=== PATIENT | female | born 1955 | race Caucasian/White ===

== ENCOUNTER → 2016-11-16 | Day surgery (SDC) | payer OTHER ==
[2016-10-30 11:13] VITALS: Ht 155.6 cm; Wt 78.0 kg
[~2016-11-16] VITALS: Ht 155.6 cm; Wt 78.0 kg
[~2016-11-16] MED LIST: ALBU18002 INH; BUPR-79 PO; FENTANYL CITRATE INJ 50 MCG/1 ML 2 ML VIAL ONE; FLUO10CA48 PO; FLUO20CA35 PO; HYOS1TAB PO; LIDOCAINE HCL 2% 2 ML VIAL (20MG/ML) ONE; LORA-741 PO; MELO7.5T5 PO; MIDAZOLAM HCL 1 MG/ML 2ML VIAL ONE; MULT-506 PO; OMEP20TA PO; PRED20TA PO; PROPOFOL IV EMULSION 10 MG/ML 20 ML VIAL IV ONE; SODIUM CHLORIDE 0.9% 500ML 500 ML IV ONE
--- NOTE | 2016-11-16 11:11 | Endo History and Physical ---
History & Physical Date of Service: Nov 16, 2016. Chief Complaint: screening Referring Physician: Dr. Rosie Greene History of Present Illness 60 yo CF who presents for screening colonoscopy. Past Surgical History Hx Cardiac Surgery: No Hx Internal Defibrillator: No Hx Pacemaker: No Hx Abdominal Surgery: Yes ( X 2) Hx of Implantable Prosthesis: No Hx Post-Op Nausea and Vomiting: No Hx Cancer Surgery: No Hx Thoracic Surgery: No Hx Orthopedic: Yes (RT KNEE BURSA REMOVAL ) Hx Urinary Tract Surgery: Yes (RT URETER RE-ATTACHMENT) Family History IBD Social History Smoking Status: Former Smoker Hx Substance Use: No Hx Alcohol Use: Yes (2 GLASSES WINE DAILY) Allergies Coded Allergies: NO KNOWN DRUG ALLERGIES (Verified Allergy, Unknown, ., 10/30/16) Uncoded Allergies: CATS (Allergy, Unknown, HIVES, 10/30/16) Current Medications Reported Home Medications Medications Dose Route/Sig Max Daily Dose Days Date Category Proair Respiclick (Albuterol Sulfate) 108 Mcg/Act Aer 2 Puffs INH QID PRN 10/30/16 Reported Ativan (Lorazepam) 0.5 Mg Tab 0.5 Mg PO HS 10/30/16 Reported Levsin (Hyoscyamine Sulfate) 0.125 Mg Tab 0.125 Mg PO BID 10/30/16 Reported Mobic (Meloxicam) 7.5 Mg Tab 7.5 Mg PO QAM 10/30/16 Reported Wellbutrin Sr (Bupropion HCl) 150 Mg Ertab 150 Mg PO QAM 10/30/16 Reported Prozac (Fluoxetine HCl) 20 Mg Cap 20 Mg PO QAM 10/30/16 Reported Prozac (Fluoxetine HCl) 10 Mg Cap 10 Mg PO QAM 10/30/16 Reported Omeprazole 20 Mg Tab 1 Tab PO HS 90 10/30/16 Reported Vital Signs Weight (Kilograms): 77.95 Height (Feet): 5 Height (Inches): 1.25 Date Time Temp Pulse Resp B/P Pulse Ox O2 Delivery O2 Flow Rate FiO2 11/16/16 11:03 36.8 78 20 134/71 97 Room Air Physical Exam General Appearance: WD/WN, no apparent distress Respiratory/Chest: Auscultation: breath sounds normal Cardiovascular: Heart Auscultation: RRR Abdomen: Bowel Sounds: normal Inspection & Palpation: soft, non-distended, no tenderness, guarding & rebound Assessment and Plan Assessment: 60 yo CF who presents for screening colonoscopy. Plan: Proceed with colonoscopy.
--- NOTE | 2016-11-16 12:05 | Discharge Instructions ---
Endoscopy Patient Instructions Date / Procedure(s) Performed Nov 16, 2016. Colonoscopy Allergy Information Coded Allergies: NO KNOWN DRUG ALLERGIES (Verified Allergy, Unknown, ., 10/30/16) Uncoded Allergies: CATS (Allergy, Unknown, HIVES, 10/30/16) Discharge Date / Findings Nov 16, 2016. Diverticulosis Internal hemorrhoids Medication Instructions OK to resume all medications today as prescribed Reported Home Medications Medications Dose Route/Sig Max Daily Dose Days Date Category Proair Respiclick (Albuterol Sulfate) 108 Mcg/Act Aer 2 Puffs INH QID PRN 10/30/16 Reported Ativan (Lorazepam) 0.5 Mg Tab 0.5 Mg PO HS 10/30/16 Reported Levsin (Hyoscyamine Sulfate) 0.125 Mg Tab 0.125 Mg PO BID 10/30/16 Reported Mobic (Meloxicam) 7.5 Mg Tab 7.5 Mg PO QAM 10/30/16 Reported Wellbutrin Sr (Bupropion HCl) 150 Mg Ertab 150 Mg PO QAM 10/30/16 Reported Prozac (Fluoxetine HCl) 20 Mg Cap 20 Mg PO QAM 10/30/16 Reported Prozac (Fluoxetine HCl) 10 Mg Cap 10 Mg PO QAM 10/30/16 Reported Omeprazole 20 Mg Tab 1 Tab PO HS 90 10/30/16 Reported Provider Instructions Activity Restrictions - No exercising or heavy lifting for 24 hours. - Do not drink alcohol the day of the procedure. - Do not drive a car or operate machinery until the day after the procedure. - Do not make any important decisions or sign important papers in 24 hours after the procedure. Following Day: - Return to full activity which may include returning to work/school. Diet Start your diet with liquids and light foods (jello, soup, juice, toast). Then eat your usual diet if not nauseated. Treatment For Common After Affects For mild abdominal pain, bloating, or excessive gas: - Rest - Eat lightly - Lie on right side Follow-Up Information Follow-up with Dr. Rosie Greene as scheduled Anesthesia Information What You Should Know You have had a procedure that required some medicine to reduce anxiety and discomfort. This treatment is called moderate sedation. After receiving the treatment, you may be sleepy, but you will be able to breathe on your own. The effects of the treatment may last for several hours. Follow these instructions along with Activity/Diet recommendations noted above: * Do NOT do anything where dizziness or clumsiness would be dangerous. * Rest quietly at home today, then you can be up and about tomorrow. * Have a responsible person stay with you the rest of today. * You may have had an I.V. today. If so, you may take the dressing off later today. Recommendations Call your doctor if: * Trouble breathing * Continuous vomiting for more than 24 hours * Temperature above 101 degrees * Severe abdominal pain or bloating * Pain not relieved by pain medicine ordered * There is increased drainage or redness from any incision * A large amount of rectal bleeding greater than 2-3 tablespoons. (If you had a polyp/s removed or have hemorrhoids, a small amount of blood - from the rectum is to be expected.) * You have any unanswered questions or concerns. IN THE EVENT OF A SERIOUS EMERGENCY, GO TO THE NEAREST EMERGENCY ROOM Your discharge instructions were prepared by provider Roly Brewster. Patient Instructions Signature Page Gemini Santos Patient (or Guardian) Signature/Date: I have read and understand the instructions given to me by my caregivers. Caregiver/RN/Doctor Signature/Date: The above-named patient and/or guardian has received patient instructions on this date. + Original Patient Signature Page (only) stays with chart. Please make copy for patient.
--- NOTE | 2016-11-16 12:09 | GI REPORT ---
Procedure Date: 11/16/2016 11:35 AM Procedure: Colonoscopy Indications: Screening for colorectal malignant neoplasm Medicines: Monitored Anesthesia Care Complications: No immediate complications. Estimated Blood Loss: Estimated blood loss: none. Procedure: Pre-Anesthesia Assessment: - Prior to the procedure, a History and Physical was performed, and patient medications and allergies were reviewed. The patient's tolerance of previous anesthesia was also reviewed. The risks and benefits of the procedure and the sedation options and risks were discussed with the patient. All questions were answered, and informed consent was obtained. Prior Anticoagulants: The patient has taken no previous anticoagulant or antiplatelet agents. ASA Grade Assessment: II - A patient with mild systemic disease. After reviewing the risks and benefits, the patient was deemed in satisfactory condition to undergo the procedure. After I obtained informed consent, the scope was passed under direct vision. Throughout the procedure, the patient's blood pressure, pulse, and oxygen saturations were monitored continuously. The scope was introduced through the anus and advanced to the terminal ileum. The colonoscopy was performed without difficulty. The patient tolerated the procedure well. The quality of the bowel preparation was good. The terminal ileum, ileocecal valve, appendiceal orifice, and rectum were photographed. Findings: Multiple small-mouthed diverticula were found in the sigmoid colon. Non-bleeding internal hemorrhoids were found during retroflexion. The hemorrhoids were small. Impression: - Diverticulosis in the sigmoid colon. - Non-bleeding internal hemorrhoids. - No specimens collected. Recommendation: - Resume previous diet. - Continue present medications. - Repeat colonoscopy in 10 years for surveillance. - Return to primary care physician as previously scheduled. Roly Brewster, 11/16/2016 12:09:19 PM This report has been signed electronically. Note Initiated On: 11/16/2016 11:35 AM I attest to the content of the Intraoperative Record and orders documented therein, exceptions below
[2016-11-16 12:48] VITALS: BP 117/55; PULSE 64; O2SAT 98
--- NOTE | 2016-11-16 13:33 | Anesthesiology Progress Note ---
Anesthesia Post Op Note Date & Time Nov 16, 2016 at 13:32 Vital Signs Pain Intensity: 0 Vital Signs Past 12 Hours Date Time Temp Pulse Resp B/P Pulse Ox O2 Delivery O2 Flow Rate FiO2 11/16/16 12:48 64 20 117/55 98 11/16/16 12:35 61 20 132/60 97 Room Air 11/16/16 12:22 66 20 118/55 97 Room Air 11/16/16 12:07 76 20 118/55 97 Room Air 11/16/16 11:03 36.8 78 20 134/71 97 Room Air Notes Mental Status: alert / awake / arousable, participated in evaluation Pt Amnestic to Procedure: Yes Nausea / Vomiting: adequately controlled Pain: adequately controlled Airway Patency, RR, SpO2: stable & adequate BP & HR: stable & adequate Hydration State: stable & adequate Anesthetic Complications: no major complications apparent
== END | disposition home or self-care (01) ==
LOC: C.GI 10:37
PROVIDERS: ATTEND Internal Medicine
DX: Z12.11 Encounter for screening for malignant neoplasm of colon (principal); Z87.891 Personal history of nicotine dependence; K57.30 Diverticulosis of large intestine without perforation or abscess without bleeding; K64.8 Other hemorrhoids

== ENCOUNTER → 2016-11-30 | Outpatient (CLI) | payer OTHER ==
[~2016-11-30] MED LIST changes: -FENTANYL CITRATE INJ 50 MCG/1 ML 2 ML VIAL ONE; -LIDOCAINE HCL 2% 2 ML VIAL (20MG/ML) ONE; -MIDAZOLAM HCL 1 MG/ML 2ML VIAL ONE; -PROPOFOL IV EMULSION 10 MG/ML 20 ML VIAL IV ONE; -SODIUM CHLORIDE 0.9% 500ML 500 ML IV ONE
[2016-11-30 12:23] LABS: ESTIMATED AVERAGE GLUCOSE 117 mg/dl; HA1C FLAG Normal (Normal)
[2016-11-30 12:32] LABS: ALKALINE PHOSPHATASE 56 U/L (45-117); ALT/SGPT 42 U/L (12-78); AST/SGOT 17 U/L (15-37); BLOOD UREA NITROGEN 13 mg/dl (7-18); BUN/CREATININE RATIO 14.8 (10-20); CALCIUM 9.2 mg/dl (8.5-10.1); CARBON DIOXIDE 31 mmol/L (21-32); CHLORIDE 105 mmol/L (98-107); CREATININE 0.88 mg/dl (0.60-1.20); GLUCOSE 104 mg/dl (70-99); POTASSIUM 4.4 mmol/L (3.5-5.1); SODIUM 141 mmol/L (136-145)
[2016-11-30 12:34] LABS: CHOLESTEROL 257 mg/dl (0-200); HDL CHOLESTEROL 64 mg/dl; LDL CHOLESTEROL CALCULATED 164 mg/dl; TRIGLYCERIDES 145 mg/dl (0-150); VERY LOW DENSITY LIPOPROT CALC 29 mg/dl
== END | disposition home or self-care (01) ==
LOC: C.LAB1850 10:07
PROVIDERS: ATTEND Family Medicine
DX: E78.5 Hyperlipidemia, unspecified (principal); R73.03 Prediabetes

== ENCOUNTER → 2017-02-05 | Outpatient (CLI) | payer OTHER ==
--- NOTE | 2017-02-05 15:23 | MAMMOGRAPHY REPORT ---
BILATERAL DIGITAL SCREENING MAMMOGRAM TOMOSYNTHESIS WITH CAD: 02/05/2017 CLINICAL HISTORY: Routine screening. TECHNIQUE: Breast tomosynthesis in addition to standard 2D mammography was performed. Current study was also evaluated with a Computer Aided Detection (CAD) system. COMPARISON: Comparison is made to exams dated: 10/29/2014 mammogram, 10/26/2013 mammogram, 04/13/2012 ma mmogram, 03/05/2011 mammogram, 03/04/2010 mammogram - [facility], and 11/06/2008. BREAST COMPOSITION: There are scattered areas of fibroglandular density in both breasts. FINDINGS: No suspicious masses, calcifications, or areas of architectural distortion are noted in ei ther breast. There has been no significant interval change compared to prior exams. Small nodular as ymmetry in the left 6:00 breast is stable dating back to at least the 2010 exam. A linear scar marke r denotes a scar on the right anterior breast. IMPRESSION: ACR BI-RADS CATEGORY 2: BENIGN There is no mammographic evidence of malignancy. A 1 year screening mammogram is recommended. The pa tient will receive written notification of the results. Approximately 10% of breast cancers are not detected with mammography. A negative mammographic report should not delay biopsy if a clinically suggestive mass is present. Santa Casey M.D. /:02/05/2017 13:16:29 Chef Instructor: Dionne Boone RT(R)(M), [facility] letter sent: Normal 1/2 BI-RADS Code: ACR BI-RADS Category 2: Benign
== END | disposition home or self-care (01) ==
LOC: C.MAMM 12:25
PROVIDERS: ATTEND Nurse Practitioner Adult Health
DX: Z12.31 Encounter for screening mammogram for malignant neoplasm of breast (principal)

== ENCOUNTER 2017-04-20 12:00 | Emergency (ER) | payer OTHER ==
[~2017-04-20] VITALS: Ht 155.6 cm; Wt 83.3 kg
[~2017-04-20 12:00] MED LIST changes: -MULT-506 PO; -PRED20TA PO
[2017-04-20 12:02] VITALS: TEMP 36.5; Ht 155.6 cm; Wt 83.3 kg
[2017-04-20] MEDS ORDERED: SODIUM CHLORIDE 0.9% 1000ML 1,000 ML IV SCH (12:50)
[2017-04-20 13:32] VITALS: O2SAT 91
[2017-04-20 13:34] LABS: BASO % 0.2 %; BASO ABS # 0.01 K/uL (0-0.2); COMPLETE YES; EOS % 7.2 %; HEMATOCRIT 44.6 % (37-47); IG% 0.5 %; LYMPH ABS # 1.43 K/uL (1.2-3.4); MEAN CELL VOLUME 95.7 fL (80-100); MEAN CORPUSCULAR HEMOGLOBIN 31.1 pg (25-34); MEAN CORPUSCULAR HGB CONC 32.5 g/dl (32-36); MEAN PLATELET VOLUME 11.2 fL (7.4-10.4); MONO % 7.9 %; NEUT % 59.2 %; PLATELET COUNT 194 K/uL (130-400); RED BLOOD COUNT 4.66 M/uL (4.2-5.4); WHITE BLOOD COUNT 5.71 K/uL (4.8-10.8)
[2017-04-20 13:42] LABS: PROTHROMBIN TIME (PATIENT) 10.2 SECONDS (9.0-12.0)
[2017-04-20 13:56] LABS: BLOOD UREA NITROGEN 17 mg/dl (7-18); BUN/CREATININE RATIO 19.7 (10-20); CALCIUM 9.7 mg/dl (8.5-10.1); CARBON DIOXIDE 28 mmol/L (21-32); CHLORIDE 104 mmol/L (98-107); CREATININE 0.88 mg/dl (0.60-1.20); GLUCOSE 92 mg/dl (70-99); POTASSIUM 4.2 mmol/L (3.5-5.1); SODIUM 138 mmol/L (136-145)
--- NOTE | 2017-04-20 13:57 | DIAGNOSTIC IMAGING REPORT ---
CT HEAD WITHOUT CONTRAST (CT) CLINICAL HISTORY: Stroke HEADACHE, RIGHT LEG NUMBNESS. COMPARISON STUDY: No previous studies for comparison. TECHNIQUE: Axial CT of the brain is performed from the vertex to the skull base. IV contrast was not administered for this examination. A dose lowering technique was utilized adhering to the principles of ALARA. CT DOSE: 776.86 mGycm FINDINGS: No intra or extra-axial mass lesions are visualized. There is no CT evidence of acute cortical infarction. There is no evidence of midline shift. There is no acute hemorrhage. No calvarial fractures are visualized. There is no evidence of pathologic ventricular dilatation. There is no evidence of acute sinusitis IMPRESSION: No acute intracranial findings Electronically signed by: Rodrigo Murguia M.D. 04/20/2017 1:56 PM Dictated Date/Time: 04/20/2017 1:55 PM
[2017-04-20] MEDS ORDERED: MULT-506 PO (14:27)
[2017-04-20] MEDS ORDERED: PRED20TA PO (14:36)
[2017-04-20 14:53] VITALS: BP 174/79; PULSE 74; O2SAT 94
--- NOTE | 2017-04-20 19:59 | EMERGENCY ROOM VISIT NOTE ---
History Report prepared by Reza: Desiree Cummins Under the Supervision of: Dr. Nickolas Rebollar D.O. First contact with patient: 12:40 Chief Complaint: NEURO SYMPTOMS Stated Complaint: NUMBNESS IN RT LEG - BELOW KNEE Nursing Triage Summary: Patient c/o numbness to outside of right calf and intermittent numbness to right large toe. Patient also states, "sometimes it feels like there is fluid on the top of my foot". History of Present Illness The patient is a 61 year old female who presents to the Emergency Room with complaints of persistent right lower leg numbness starting 3 days ago. She was sent to the ED by her PCP. The numbness goes down the outside of her right leg and down across the inside of her foot. She also feels like there is fluid inside the top of her foot. She can feel in her right leg, but it feels different from her left leg. The numbness has not changed since it started. She feels like she cannot get comfortable. She has tried elevating her foot to no relief. She does not have any pain in her legs. She denies any recent trauma or new activity. She notes some pain under her buttocks on the left side, but not the right side. She denies any chest pain, nausea, vomiting, diarrhea, SOB, abdominal pain, dysuria, weakness, headache, change in vision, back pain, or numbness elsewhere. She denies any other medical problems. Source of History: patient Onset: 3 days ago Position: leg (right) Quality: numbness Timing: other (persistent) Associated Symptoms: No headache, No chest pain, No SOB, No nausea, No vomiting, No abdominal pain, No back pain, No diarrhea, No urinary symptoms, No weakness Review of Systems See HPI for pertinent positives & negatives. A total of 10 systems reviewed and were otherwise negative. Past Medical & Surgical Medical Problems: (1) Carpal tunnel syndrome Family History No pertinent family history stated. Social History Smoking Status: Former Smoker Marital Status: Occupation Status: employed Current/Historical Medications Scheduled Bupropion (Wellbutrin Sr), 150 MG PO QAM Fluoxetine (Prozac), 10 MG PO QAM Fluoxetine (Prozac), 20 MG PO QAM Hyoscyamine Sulfate (Levsin), 0.125 MG PO BID Lorazepam (Ativan), 0.5 MG PO HS Meloxicam (Mobic), 7.5 MG PO QAM Multivitamin (Multivitamin), 1 TAB PO DAILY Omeprazole (Omeprazole), 20 MG PO DAILY Prednisone (Prednisone), 1 TAB PO DAILY Scheduled PRN Albuterol Sulfate (Proair Respiclick), 2 PUFFS INH QID PRN for Shortness of Breath Allergies Coded Allergies: NO KNOWN DRUG ALLERGIES (Verified Allergy, Unknown, ., 04/20/17) Uncoded Allergies: CATS (Allergy, Unknown, HIVES, 10/30/16) Physical Exam Vital Signs Date Time Temp Pulse Resp B/P (MAP) Pulse Ox O2 Delivery O2 Flow Rate FiO2 04/20/17 14:53 74 18 174/79 94 04/20/17 13:32 73 18 144/72 96 Room Air 04/20/17 13:32 91 Room Air 04/20/17 12:02 36.5 80 18 159/81 92 Room Air Physical Exam GENERAL: sitting up in bed, alert, well appearing, well nourished, no distress, non-toxic EYE EXAM: normal conjunctiva, PERRL and EOM's intact OROPHARYNX: no exudate, no erythema, lips, buccal mucosa, and tongue normal and mucous membranes are moist NECK: supple, no nuchal rigidity, no adenopathy, non-tender LUNGS: Clear to auscultation. Normal chest wall mechanics HEART: no murmurs, S1 normal and S2 normal ABDOMEN: abdomen soft, non-tender, normo-active bowel sounds, no masses, no rebound or guarding. BACK: Back is symmetrical on inspection and there is no deformity, no midline tenderness, no CVA tenderness. SKIN: no rashes and no bruising UPPER EXTREMITIES: upper extremities are grossly normal. LOWER EXTREMITIES: Right mid tibia anterior surface with mild perceived paraesthesias tracking medially down over the first metatarsal on the proximal portion just distal to the ankle. Calves equal bilaterally. Patellar and Achilles reflexes intact. NEURO EXAM: Normal sensorium, cranial nerves II-XII intact, normal speech, no weakness of arms, no weakness of legs. No drift. Finger to nose intact. Gross sensation intact. Rapid alternating movements of the upper extremities intact. Medical Decision & Procedures ER Provider Diagnostic Interpretation: Radiology results as stated below per my review and the radiologist's interpretation: CT HEAD WITHOUT CONTRAST (CT) CLINICAL HISTORY: Stroke HEADACHE, RIGHT LEG NUMBNESS. COMPARISON STUDY: No previous studies for comparison. TECHNIQUE: Axial CT of the brain is performed from the vertex to the skull base. IV contrast was not administered for this examination. A dose lowering technique was utilized adhering to the principles of ALARA. CT DOSE: 776.86 mGycm FINDINGS: No intra or extra-axial mass lesions are visualized. There is no CT evidence of acute cortical infarction. There is no evidence of midline shift. There is no acute hemorrhage. No calvarial fractures are visualized. There is no evidence of pathologic ventricular dilatation. There is no evidence of acute sinusitis IMPRESSION: No acute intracranial findings Electronically signed by: Rodrigo Murguia M.D. 04/20/2017 1:56 PM Dictated Date/Time: 04/20/2017 1:55 PM Laboratory Results 04/20/17 13:00 Red Blood Count 4.66, Mean Corpuscular Volume 95.7, Mean Corpuscular Hemoglobin 31.1, Mean Corpuscular Hemoglobin Concent 32.5, Mean Platelet Volume 11.2, Neutrophils (%) (Auto) 59.2, Lymphocytes (%) (Auto) 25.0, Monocytes (%) (Auto) 7.9, Eosinophils (%) (Auto) 7.2, Basophils (%) (Auto) 0.2, Neutrophils # (Auto) 3.38, Lymphocytes # (Auto) 1.43, Monocytes # (Auto) 0.45, Eosinophils # (Auto) 0.41, Basophils # (Auto) 0.01 04/20/17 13:00 Test 04/20/17 13:00 White Blood Count 5.71 K/uL (4.8-10.8) Red Blood Count 4.66 M/uL (4.2-5.4) Hemoglobin 14.5 g/dL (12.0-16.0) Hematocrit 44.6 % (37-47) Mean Corpuscular Volume 95.7 fL (80-100) Mean Corpuscular Hemoglobin 31.1 pg (25-34) Mean Corpuscular Hemoglobin Concent 32.5 g/dl (32-36) Platelet Count 194 K/uL (130-400) Mean Platelet Volume 11.2 fL (7.4-10.4) Neutrophils (%) (Auto) 59.2 % Lymphocytes (%) (Auto) 25.0 % Monocytes (%) (Auto) 7.9 % Eosinophils (%) (Auto) 7.2 % Basophils (%) (Auto) 0.2 % Neutrophils # (Auto) 3.38 K/uL (1.4-6.5) Lymphocytes # (Auto) 1.43 K/uL (1.2-3.4) Monocytes # (Auto) 0.45 K/uL (0.11-0.59) Eosinophils # (Auto) 0.41 K/uL (0-0.5) Basophils # (Auto) 0.01 K/uL (0-0.2) RDW Standard Deviation 45.4 fL (36.4-46.3) RDW Coefficient of Variation 13.2 % (11.5-14.5) Immature Granulocyte % (Auto) 0.5 % Immature Granulocyte # (Auto) 0.03 K/uL (0.00-0.02) Prothrombin Time 10.2 SECONDS (9.0-12.0) Prothromb Time International Ratio 1.0 (0.9-1.1) Activated Partial Thromboplast Time 25.2 SECONDS (21.0-31.0) Partial Thromboplastin Ratio 1.0 Anion Gap 6.0 mmol/L (3-11) Est Creatinine Clear Calc Drug Dose 66.9 ml/min Estimated GFR () 82.8 Estimated GFR (Non- 71.4 BUN/Creatinine Ratio 19.7 (10-20) Calcium Level 9.7 mg/dl (8.5-10.1) Troponin I < 0.015 ng/ml (0-0.045) Laboratory results per my review. Medications Administered Medications (Trade) Dose Ordered Sig/Daija Route Start Time Stop Time Status Last Admin Dose Admin Sodium Chloride 1,000 ml @ 50 mls/hr Q20H IV 04/20/17 12:50 04/20/17 15:16 DC 04/20/17 13:56 50 MLS/HR Prednisone (PredniSONE TAB) 60 mg NOW STAT PO 04/20/17 14:37 04/20/17 14:38 DC 04/20/17 14:46 60 MG ECG Indication: other Rate (beats per minute): 66 Rhythm: sinus rhythm Findings: no ectopy, other (normal axis) ED Course ED COURSE: Vital signs were reviewed and showed hypertension. The patients medical record was reviewed The above diagnostic studies were performed and reviewed. ED treatments and interventions as stated above. 1242: The patient was evaluated in room C12B. A complete history and physical examination was performed. 1250: NSS 1000 ml @ 50 mls/hr IV. 1430: Upon reevaluation, the patient is resting comfortably. I discussed my findings with the patient and she understands and agrees with the treatment plan. Based on the patients age, coexisting illnesses, exam and lab findings the decision to treat as an outpatient was made. The patient remained stable while under my care. The patient appeared well at the time of discharge. 1437: Prednisone 60 mg PO. Medical Decision Differential Diagnosis includes but is not limited to ischemic Stroke, hemorrhagic stroke, bells palsy, mass, neoplasm, migraine headache, seizure, subarachnoid hemorrhage, TIA, and transient global amnesia. Patient is a 61-year-old female that presents to ER with numbness in her right lower extremity which is in the distribution of L4. No focal deficit otherwise. CBC and BMP is unremarkable. CT head was negative. Patient is carefully neurologically intact otherwise. No other complaints. I do believe that this is a peripheral neuropraxia. She was given small dose of steroids and discharge follow-up with PCP. No numbness or tingling in the groin. Able to move her bowels. No signs of cauda equina. Medication Reconcilliation Current Medication List: was personally reviewed by me Blood Pressure Screening Patient's blood pressure: Elevated blood pressure Blood pressure disposition: Elevated BP felt to be situational Impression Primary Impression: Right leg paresthesias Scribe Attestation The scribe's documentation has been prepared under my direction and personally reviewed by me in its entirety. I confirm that the note above accurately reflects all work, treatment, procedures, and medical decision making performed by me. Departure Information Dispostion Home / Self-Care Prescriptions Prednisone (Prednisone) 20 Mg Tab 1 TAB PO DAILY for 5 Days, #5 TAB Prov: Nickolas Rebollar, 04/20/17 Referrals Taylor Zelaya C.R.N.P. (PCP) Forms HOME CARE DOCUMENTATION FORM, IMPORTANT VISIT INFORMATION, WORK / SCHOOL INSTRUCTIONS Patient Instructions ED Paraesthesias, My [facility] Additional Instructions Please follow up with your primary care doctor with in the next 24 hours. Any worsening of your symptoms, please return to the ED immediately. This includes any fevers greater than 100.4, worsening pain, chest pain, shortness breath, persistent nausea, vomiting, weakness or numbness in your legs, unable to walk, unable to urinate, numbness in your groin, unable to eat or drink, or any other concerning signs or symptoms from your standpoint. Please take steroids as prescribed.
== END 2017-04-20 14:54 | disposition home or self-care (01) ==
LOC: C.EDB 12:02 → C.EDC 14:54
DX: R20.2 Paresthesia of skin (principal); G56.00 Carpal tunnel syndrome, unspecified upper limb; Z87.891 Personal history of nicotine dependence

== ENCOUNTER → 2017-04-30 | Outpatient (CLI) | payer OTHER ==
[~2017-04-30] MED LIST changes: +MULT-506 PO
[2017-04-30 14:25] LABS: LYME DISEASE AB IGG NEG (NEG); LYME DISEASE AB IGM NEG (NEG)
== END | disposition home or self-care (01) ==
LOC: C.LABBC 10:26
PROVIDERS: ATTEND Nurse Practitioner Adult Health
DX: R20.2 Paresthesia of skin (principal)

== ENCOUNTER → 2017-07-16 | Outpatient (CLI) | payer OTHER ==
[2017-07-16 11:05] LABS: ESTIMATED AVERAGE GLUCOSE 117 mg/dl; HA1C FLAG Normal (Normal)
[2017-07-16 11:14] LABS: BASO % 0.3 %; BASO ABS # 0.02 K/uL (0-0.2); COMPLETE YES; EOS % 5.4 %; HEMATOCRIT 42.8 % (37-47); IG% 0.3 %; LYMPH % 27.4 %; LYMPH ABS # 1.68 K/uL (1.2-3.4); MEAN CELL VOLUME 97.3 fL (80-100); MEAN CORPUSCULAR HEMOGLOBIN 31.8 pg (25-34); MEAN CORPUSCULAR HGB CONC 32.7 g/dl (32-36); MEAN PLATELET VOLUME 11.9 fL (7.4-10.4); MONO % 7.7 %; NEUT % 58.9 %; PLATELET COUNT 169 K/uL (130-400); WHITE BLOOD COUNT 6.14 K/uL (4.8-10.8)
[2017-07-16 11:19] LABS: ALT/SGPT 51 U/L (12-78); BLOOD UREA NITROGEN 14 mg/dl (7-18); BUN/CREATININE RATIO 17.6 (10-20); CARBON DIOXIDE 31 mmol/L (21-32); CHLORIDE 105 mmol/L (98-107); CHOLESTEROL 253 mg/dl (0-200); CREATININE 0.81 mg/dl (0.60-1.20); GLUCOSE 102 mg/dl (70-99); POTASSIUM 3.9 mmol/L (3.5-5.1); SODIUM 140 mmol/L (136-145)
[2017-07-16 11:30] LABS: ALB/GLOB RATIO 1.1 (0.9-2); ALKALINE PHOSPHATASE 54 U/L (45-117); AST/SGOT 25 U/L (15-37); CHOLESTEROL/HDL RATIO 3.8; HDL CHOLESTEROL 66 mg/dl; LDL CHOLESTEROL CALCULATED 155 mg/dl; TRIGLYCERIDES 158 mg/dl (0-150); VERY LOW DENSITY LIPOPROT CALC 32 mg/dl
== END | disposition home or self-care (01) ==
LOC: C.LABBC 08:19
PROVIDERS: ATTEND Nurse Practitioner Adult Health
DX: E78.5 Hyperlipidemia, unspecified (principal); R73.03 Prediabetes

== ENCOUNTER → 2017-08-19 | Outpatient (CLI) | payer OTHER ==
[~2017-08-19] VITALS: Ht 155.6 cm; Wt 84.3 kg
[2017-08-19 13:33] VITALS: BP 141/78; PULSE 84; Ht 155.6 cm; Wt 84.3 kg
--- NOTE | 2017-08-27 09:02 | CODING QUERY NO DIAGNOSIS ---
TREATMENT RENDERED WITHOUT A DIAGNOSIS : 56 To promote full compliance with coding requirements relating to patient care, physician participation is requested in all cases of glass bulb silverer uncertainty. Please assist us with providing a diagnosis/symptom for the test(s) below: A diagnosis/symptom was not documented on your Order. A valid diagnosis/symptom is required to bill all insurances. Please remember that we are unable to code a diagnosis of rule out, probable, possible, questionable, or suspected. Tests that require a diagnosis: DOS: 08/19/17 * EPWORTH SLEEPINESS SCALE DIAGNOSIS: Provider Signature: Date: Provider Name: Thank you Tereza Morgan Health Information Management Once completed, please kindly fax back to [phone] For questions please call [phone]
== END | disposition home or self-care (01) ==
LOC: C.NEUR 12:58
PROVIDERS: ATTEND Physician Assistant
DX: G47.30 Sleep apnea, unspecified (principal); G47.61 Periodic limb movement disorder

== ENCOUNTER → 2017-08-24 | Outpatient (CLI) | payer OTHER ==
[2017-08-24 17:19] LABS: ALBUMIN 3.7 gm/dl (3.4-5.0); ALKALINE PHOSPHATASE 60 U/L (45-117); ALT/SGPT 63 U/L (12-78); AST/SGOT 36 U/L (15-37); LDL CHOLESTEROL (DIRECT) 151 mg/dl; TOTAL PROTEIN 7.1 gm/dl (6.4-8.2)
== END | disposition home or self-care (01) ==
LOC: C.LABBC 14:23
PROVIDERS: ATTEND Nurse Practitioner Adult Health
DX: E78.5 Hyperlipidemia, unspecified (principal); Z11.59 Encounter for screening for other viral diseases

== ENCOUNTER → 2018-03-02 | Outpatient (CLI) | payer OTHER ==
--- NOTE | 2018-03-03 07:58 | MAMMOGRAPHY REPORT ---
BILATERAL DIGITAL SCREENING MAMMOGRAM TOMOSYNTHESIS WITH CAD: 03/02/2018 CLINICAL HISTORY: Routine screening. Patient has no complaints. TECHNIQUE: The study was acquired using full field digital technology and interpreted from soft copy. Breast tomosynthesis in addition to standard 2D mammography was performed. Current study was also ev aluated with a Computer Aided Detection (CAD) system. COMPARISON: Comparison is made to exams dated: 02/05/2017 mammogram, 10/29/2014 mammogram, 10/26/2013 m ammogram, 04/13/2012 mammogram, 03/05/2011 mammogram, and 03/04/2010 mammogram - [facility] nter. BREAST COMPOSITION: There are scattered areas of fibroglandular density in both breasts. FINDINGS: No suspicious masses, calcifications, or areas of architectural distortion are noted in either breast . There has been no significant interval change compared to prior exams. Focal asymmetry in the left 6:00 breast is stable compared to multiple prior exams and considered benign given long-term stabili ty. Scattered bilateral benign-appearing calcifications are stable. IMPRESSION: ACR BI-RADS CATEGORY 2: BENIGN There is no mammographic evidence of malignancy. A 1 year screening mammogram is recommended.( 019) The patient will receive written notification of the results. Some breast cancers are not detected with mammography. A negative mammographic report should not rachna y biopsy if a clinically suggestive mass is present. Santa Casey M.D. /:03/02/2018 12:57:39 Software Implementation Specialist: RT Debi(Ethan)(M)(BD), [facility] letter sent: Normal 1/2 BI-RADS Code: ACR BI-RADS Category 2: Benign
== END | disposition home or self-care (01) ==
LOC: C.MAMM 12:28
PROVIDERS: ATTEND Family Medicine
DX: Z12.31 Encounter for screening mammogram for malignant neoplasm of breast (principal)

== ENCOUNTER 2023-10-19 00:15 | Inpatient (IN) ==
--- NOTE | 2023-10-19 01:11 | Emergency Department Note ---
Impression & Plan Multifocal pneumonia, Hypoxia, Human metapneumovirus (hMPV) pneumonia Admit to the [facility] ED Provider Note NAME: OFELIA GARCIA AGE: 67 SEX: Female INFORMANT: Patient and her ED PROVIDER(S): Anne Astorga DO CHIEF COMPLAINT: Flu symptoms PLAN: Disposition: Admit to the [facility] MEDICAL DECISION MAKING: This is a 67-year-old female patient presents to the emergency department 3-day history of flu symptoms. On presentation, the patient had tachycardia, fever and low oxygen saturations. She required supplemental oxygen to keep her resting O2 saturation above 90%. When she would exert herself/walk to the bathroom, O2 saturations dropped into the mid 80s. Portable chest x-ray revealed a multifocal pneumonia. The patient was sent for CT scan of the chest which confirmed the pneumonia but revealed no evidence of a PE. Bio fire upper respiratory swab revealed human metapneumovirus and sutton NL 6 3. Laboratory studies revealed a white blood cell count of 12.4, sodium of 131, chloride of 97. There is a stable H&H and normal renal function. Glucose was 115. Blood cultures were obtained. Care/management discussed with: risk control manager and the [facility] as well as the patient and her Triage Nursing notes: Reviewed and agree with them. Vital Signs: reviewed and remarkable for tachycardia, fever and hypoxia Additional History obtained from: The is at the bedside Differential Diagnosis: Influenza, COVID, pneumonia, viral illness, PE Diagnostics, independently interpreted by me: ECG: Normal sinus rhythm at a rate of 96 with PACs. There is no ST segment elevation or signs of ischemia Cardiac Monitoring: Sinus tachycardia at 102 Imaging studies: As per my independent interpretation-portable chest [id number] opacities HPI: 67 year old Female arrives for evaluation of flu symptoms. The patient developed flu symptoms 2 days ago. She had a cough and feels short of breath. She has significant increased thirst. The patient describes a headache and significant body aches. Patient had been on a airplane ride in car ride within the past 2 to 3 weeks. She had also undergone recent surgery within the past month. PAST MEDICAL HISTORY: See Below, PAST SURGICAL HISTORY: Recent cholecystectomy, SOCIAL HISTORY: See Below, HOME MEDICATIONS: See list ALLERGIES: See list VITALS: See Below PHYSICAL EXAMINATION: HEENT: Head - normocephalic and atraumatic. Pupils are equal, round, and reactive to light. Extraocular eye muscles are intact, and sclera are anicteric. Nose -dry nasal mucosa without discharge. Mouth -extremely dry buccal mucosa. Oropharynx is nonerythematous and there is no tonsillar exudate or edema noted. Neck: Supple; no JVD, nuchal rigidity, cervical lymphadenopathy, or auscultated bruits. Heart: Tachycardic rate and rhythm. There is a normal S1 and S2 with no murmurs, clicks, or gallops appreciated. Lungs: Diminished breath sounds at the left lung base with expiratory wheezes noted. Abdomen: Soft, completely nontender, nondistended, with good bowel sounds. There are no palpable pulsatile masses or hepatosplenomegaly. There is no guarding, rigidity, or rebound noted. Extremities: No evidence of cyanosis, clubbing, or edema. There are easily palpable peripheral pulses. Skin: warm and dry with poor turgor and no rashes. Emergency department treatment: library monitor,, supplemental oxygen, IV normal saline bolus, DuoNeb, IV Decadron ED course: The patient was evaluated in room B10. She was placed on supplemental oxygen. IV lock was initiated and labs were drawn as above. Order was placed for continuous cardiac monitoring. The patient was in a sinus tachycardia at a rate of 102. Twelve-lead EKG was obtained. The patient was bolused with IV normal saline. She was given a DuoNeb treatment. A portable chest x-ray was obtained. Patient went on to CT scan of the chest. Patient was given a dose of IV Decadron. I reviewed the results with the patient and her . I discussed the case with the [facility] Hospitalist. Patient's oxygen requirement began to increase with sleep, although the patient does have a history of sleep apnea. I have personally spent greater than 40 minutes of critical care time in the direct management of this patient. This includes bedside care, interpretation of diagnostic studies, and testing, discussion with consultants, patient, and family members, and other required patient management activities. This 40 minutes is in excess of all separately billable procedures. Past Med/Surg History Medical History Hx of bronchitis reason for inhaler, rarely uses DM2 (diabetes mellitus, type 2) Sleep apnea cpap History of COVID-19 11/2021 - fatigue, congestion, cough, fever - resolved IBS (irritable bowel syndrome) Fatty infiltration of liver History of depression Acid reflux disease Anxiety Hyperlipidemia Surgical History Hx laparoscopic cholecystectomy (08/25/23) Robotic Laparoscopic Cholecystectomy - Christopher Ramirez DO, FACS History of kidney surgery childhood History of colonoscopy H/O left cataract extraction 08/18/21 H/O right cataract extraction 09/08/21 S/P section x2 S/P wisdom tooth extraction Family History Father Myocardial infarction Stroke Hypertension Heart disease Mother Hypertension Clotting disorder Brother Bladder cancer Denies family history of Ovarian cancer Prostate cancer Breast cancer Colorectal cancer Social History Smoking Status: Never smoker Tobacco Type: Cigarettes Age Started Using Tobacco: 19; Age Quit Using Tobacco: 45; packs per day: 0.5; Cigarettes Per Day: 1/2 pk/day; Second Hand Exposure: No; Do You Dip or Chew Tobacco: No; Hx Alcohol Use: Yes Alcohol type: wine Alcohol Intake Frequency: 4 or More x per/Week Alcohol Intake Frequency Comment: 2 glasses of wine daily Hx Substance Use: No Preferred Language: [place] Communication Ability: Effective Visual Impairment: No Limitations Hearing Ability: Normal Lime Hide Inspector Required: No Beliefs That Will Affect Care: None marital status: Current Living Situation: Spouse current occupational status: retired 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 Verified 09/09/23 10:07 adhesive AdvReac Intermediate Blistering Verified 09/09/23 10:07 of the Skin Home Meds Home Medications Medication Instructions Recorded Confirmed psyllium husk 0.4 gram capsule 0.4 g PO BID 03/18/22 09/09/23 (Daily Fiber) multivitamin 1 tab PO BID 06/12/22 09/09/23 fluticasone propionate 50 2 spray intranasal DAILY PRN 05/06/23 09/09/23 mcg/actuation nasal Allergy Symptoms spray,suspension (Flonase Allergy Relief) nbuhl-hspbpwvoa-FT-acetaminoph 50 30 ml PO HS PRN Cough 08/19/23 09/09/23 mg-60 mg-30 mg-650 mg/30mL oral soln atorvastatin 10 mg tablet 10 mg PO QPM 08/25/23 10/19/23 Previous Rx's Medication Instructions Recorded albuterol sulfate 90 mcg/actuation 1 - 2 puff inhalation Q4H PRN 07/15/22 aerosol inhaler shortness of breath or wheezing #8.5 grams benzonatate 100 mg capsule See Rx Instructions PO TID PRN 03/12/23 cough #30 caps bupropion HCl 150 mg tablet,12 hr 150 mg PO QAM #90 ea 04/13/23 sustained-release fluoxetine 20 mg capsule 20 mg PO DAILY anxiety #90 caps 04/13/23 metformin 500 mg tablet,extended 500 mg PO DAILY #30 tabs 04/19/23 release 24 hr famotidine 40 mg tablet 40 mg PO PM #90 tabs 07/16/23 pantoprazole 40 mg tablet,delayed 40 mg PO BID #90 tabs 07/27/23 release (Protonix) fluoxetine 10 mg capsule 10 mg PO DAILY anxiety #90 caps 08/30/23 lorazepam 0.5 mg tablet 0.5 mg PO HS PRN anxiety #30 tabs 09/21/23 Results & Data (ED) Vital Signs Vital Signs - 24 hr 10/19/23 00:18 10/19/23 00:38 10/19/23 00:39 Temperature 37.7 C H Temperature Source Oral Pulse Rate 108 H 104 H 107 H Pulse Rate [Apical] Pulse Rate from SpO2 Sensor 103 H Pulse Rhythm Pulse Rhythm [Apical] Pulse Strength [Apical] Respiratory Rate 22 17 Respiratory Effort / Characteristics Non-Labored Spontaneous Respiratory Depth Normal Respiratory Pattern Blood Pressure 140/70 180/85 H Blood Pressure [Right Arm] Blood Pressure Mean 93 116 Blood Pressure Mean [Right Arm] Blood Pressure Position [Right Arm] Pulse Oximetry 99 92 Oxygen Delivery Method Room Air Room Air Oxygen Flow Rate Sepsis Recent Fever Within 48 Hours Yes Sepsis New/Unexplained Change in Mental Status No Sepsis Action Taken by Nursing Physician Notified 10/19/23 01:00 10/19/23 01:00 10/19/23 01:02 Temperature Temperature Source Pulse Rate 98 H Pulse Rate [Apical] 99 H Pulse Rate from SpO2 Sensor 98 H Pulse Rhythm Pulse Rhythm [Apical] Regular Pulse Strength [Apical] Normal Respiratory Rate 23 17 Respiratory Effort / Characteristics Non-Labored Respiratory Depth Normal Respiratory Pattern Regular Blood Pressure 149/86 H Blood Pressure [Right Arm] 149/86 H Blood Pressure Mean 105 Blood Pressure Mean [Right Arm] 107 Blood Pressure Position [Right Arm] Sitting Pulse Oximetry 91 90 Oxygen Delivery Method Nasal Cannula Room Air Oxygen Flow Rate 2 Sepsis Recent Fever Within 48 Hours Sepsis New/Unexplained Change in Mental Status Sepsis Action Taken by Nursing 10/19/23 01:05 10/19/23 01:30 10/19/23 01:42 Temperature Temperature Source Pulse Rate 102 H 100 H Pulse Rate [Apical] Pulse Rate from SpO2 Sensor 99 H Pulse Rhythm Regular Pulse Rhythm [Apical] Pulse Strength [Apical] Respiratory Rate 22 23 22 Respiratory Effort / Characteristics Non-Labored Spontaneous Respiratory Depth Normal Respiratory Pattern Tachypnea Blood Pressure Blood Pressure [Right Arm] Blood Pressure Mean Blood Pressure Mean [Right Arm] Blood Pressure Position [Right Arm] Pulse Oximetry 92 91 88 L Oxygen Delivery Method Room Air Nasal Cannula Room Air Oxygen Flow Rate 2 Sepsis Recent Fever Within 48 Hours Sepsis New/Unexplained Change in Mental Status Sepsis Action Taken by Nursing 10/19/23 01:45 10/19/23 02:00 10/19/23 02:00 Temperature Temperature Source Pulse Rate 91 H Pulse Rate [Apical] Pulse Rate from SpO2 Sensor 91 H Pulse Rhythm Pulse Rhythm [Apical] Pulse Strength [Apical] Respiratory Rate 20 20 Respiratory Effort / Characteristics Non-Labored Spontaneous Respiratory Depth Normal Respiratory Pattern Regular Blood Pressure 137/54 L Blood Pressure [Right Arm] Blood Pressure Mean 81 Blood Pressure Mean [Right Arm] Blood Pressure Position [Right Arm] Pulse Oximetry 93 90 Oxygen Delivery Method Nasal Cannula Nasal Cannula Oxygen Flow Rate 2 2 Sepsis Recent Fever Within 48 Hours Sepsis New/Unexplained Change in Mental Status Sepsis Action Taken by Nursing 10/19/23 02:30 10/19/23 02:30 10/19/23 03:00 Temperature Temperature Source Pulse Rate 95 H Pulse Rate [Apical] 81 Pulse Rate from SpO2 Sensor 95 H Pulse Rhythm Pulse Rhythm [Apical] Regular Pulse Strength [Apical] Normal Respiratory Rate 22 20 Respiratory Effort / Characteristics Non-Labored Spontaneous Respiratory Depth Normal Respiratory Pattern Regular Blood Pressure 126/75 Blood Pressure [Right Arm] 126/75 Blood Pressure Mean 99 Blood Pressure Mean [Right Arm] 92 Blood Pressure Position [Right Arm] Sitting Pulse Oximetry 91 90 Oxygen Delivery Method Nasal Cannula Nasal Cannula Oxygen Flow Rate 3 3 Sepsis Recent Fever Within 48 Hours Sepsis New/Unexplained Change in Mental Status Sepsis Action Taken by Nursing 10/19/23 03:11 10/19/23 03:30 10/19/23 04:00 Temperature Temperature Source Pulse Rate 94 H 88 83 Pulse Rate [Apical] Pulse Rate from SpO2 Sensor 95 H 88 84 Pulse Rhythm Pulse Rhythm [Apical] Pulse Strength [Apical] Respiratory Rate 25 H 20 13 Respiratory Effort / Characteristics Respiratory Depth Respiratory Pattern Blood Pressure Blood Pressure [Right Arm] Blood Pressure Mean Blood Pressure Mean [Right Arm] Blood Pressure Position [Right Arm] Pulse Oximetry 92 92 90 Oxygen Delivery Method Nasal Cannula Nasal Cannula Nasal Cannula Oxygen Flow Rate 3 3 3 Sepsis Recent Fever Within 48 Hours Sepsis New/Unexplained Change in Mental Status Sepsis Action Taken by Nursing 10/19/23 04:08 10/19/23 04:30 10/19/23 05:00 Temperature Temperature Source Pulse Rate 83 83 Pulse Rate [Apical] 83 Pulse Rate from SpO2 Sensor 85 Pulse Rhythm Pulse Rhythm [Apical] Regular Pulse Strength [Apical] Normal Respiratory Rate 19 20 Respiratory Effort / Characteristics Non-Labored Spontaneous Respiratory Depth Normal Respiratory Pattern Regular Blood Pressure Blood Pressure [Right Arm] 127/64 Blood Pressure Mean Blood Pressure Mean [Right Arm] 85 Blood Pressure Position [Right Arm] Sitting Pulse Oximetry 93 91 Oxygen Delivery Method Nasal Cannula Nasal Cannula Oxygen Flow Rate 4 4 Sepsis Recent Fever Within 48 Hours Sepsis New/Unexplained Change in Mental Status Sepsis Action Taken by Nursing 10/19/23 05:00 10/19/23 05:30 Temperature Temperature Source Pulse Rate 90 84 Pulse Rate [Apical] Pulse Rate from SpO2 Sensor 89 84 Pulse Rhythm Pulse Rhythm [Apical] Pulse Strength [Apical] Respiratory Rate 22 22 Respiratory Effort / Characteristics Respiratory Depth Respiratory Pattern Blood Pressure Blood Pressure [Right Arm] Blood Pressure Mean Blood Pressure Mean [Right Arm] Blood Pressure Position [Right Arm] Pulse Oximetry 90 90 Oxygen Delivery Method Nasal Cannula Nasal Cannula Oxygen Flow Rate 4 4 Sepsis Recent Fever Within 48 Hours Sepsis New/Unexplained Change in Mental Status Sepsis Action Taken by Nursing Laboratory Data 10/19/23 01:33 10/19/23 01:33 Lab Results 10/19/23 10/19/23 Range/Units 00:37 01:33 WBC 12.40 H (4.8-10.8) K/ul RBC 3.99 L (4.20-5.40) M/uL Hgb 12.7 (12.0-16.0) g/dl Hct 37.1 (37.0-47.0) % MCV 93.0 (80.0-100.0) fL MCH 31.8 (25.0-34.0) pg MCHC 34.2 (32.0-36.0) g/dL RDW Std Deviation 47.5 H (36.4-46.3) fL RDW Coeff of Sabino 13.9 (11.5-14.5) % Plt Count 178 (130-400) K/uL MPV 10.9 (9.4-12.4) fL Immature Gran % (Auto) 1.8 % Neut % (Auto) 84.6 % Lymph % (Auto) 8.5 % [place] % (Auto) 4.9 % Eos % (Auto) 0.1 % Baso % (Auto) 0.1 % Neut # (Auto) 10.50 H (1.40-6.50) K/uL Lymph # (Auto) 1.05 L (1.20-3.40) K/uL [place] # (Auto) 0.61 H (0.11-0.59) K/uL Eos # (Auto) 0.01 (0.00-0.50) K/uL Baso # (Auto) 0.01 (0.00-0.20) K/uL Immature Gran # (Auto) 0.22 H (0.01-0.20) K/uL Sodium 131 L (136-145) mmol/L Potassium 3.7 (3.5-5.1) mmol/L Chloride 97 L (98-107) mmol/L Carbon Dioxide 25 (21-32) mmol/L Anion Gap 9 (3-11) BUN 11 (6-23) mg/dl Creatinine 1.02 (0.6-1.2) mg/dl Est Cr Clr Drug Dosing 54.7 ml/min Est GFR ( Amer) 66.4 ml/min Est GFR (Non-Af Amer) 57.3 ml/min BUN/Creatinine Ratio 10.8 (10-20) Glucose 115 H (70-99(Fasting)) mg/dl Calcium 9.2 (8.6-10.3) mg/dl Phosphorus 1.8 L (2.5-4.9) mg/dl Magnesium 1.6 L (1.7-2.4) mg/dl Total Bilirubin 0.8 (0.2-1.0) mg/dl AST 21 (13-39) U/L ALT 26 (7-52) U/L Alkaline Phosphatase 61 (34-104) U/L Total Protein 7.6 (6.0-8.3) gm/dl Albumin 3.9 (3.4-5.0) gm/dl Globulin 3.7 (2.5-4.0) gm/dl Albumin/Globulin Ratio 1.1 (0.9-2) Urine Color Yellow Urine Appearance Cloudy A (Clear) Urine pH 5.5 (4.5-7.5) Ur Specific [place] 1.021 (1.000-1.030) Urine Protein 2+ H (Negative) Urine Glucose (UA) Negative (Negative) Urine Ketones Trace H (Negative) Urine Blood 1+ H (Negative) Urine Nitrite Positive A (Negative) Urine Bilirubin Negative (Negative) Urine Urobilinogen Negative (Negative) Ur Leukocyte Esterase 1+ H (Negative) Urine WBC (Auto) 10-30 H (0-5) /hpf Urine RBC (Auto) 0-4 (0-4) /hpf U Hyaline Cast (Auto) 0 (0-5) /lpf U Epithel Cells (Auto) 20-30 H (0-5) /lpf Urine Bacteria (Auto) 3+ H (Negative) Adenovirus (PCR) Not Detected (NotDetected) B. pertussis DNA (PCR) Not Detected (NotDetected) B.parapertussis DNA PCR Not Detected (NotDetected) C. pneumoniae DNA (PCR) Not Detected (NotDetected) Coronavirus OC43 (PCR) Not Detected (NotDetected) Coronavirus HKU1 (PCR) Not Detected (NotDetected) Coronavirus 229E (PCR) Not Detected (NotDetected) SARS-CoV-2 (PCR) Not Detected (NotDetected) Coronavirus NL63 (PCR) DETECTED A (NotDetected) Human Metapneumovir PCR DETECTED A (NotDetected) Influenza Type A (PCR) Not Detected (NotDetected) Influenza Type B (PCR) Not Detected (NotDetected) M. pneumoniae (PCR) Not Detected (NotDetected) Parainfluenza 1 (PCR) Not Detected (NotDetected) Parainfluenza 2 (PCR) Not Detected (NotDetected) Parainfluenza 3 (PCR) Not Detected (NotDetected) Parainfluenza 4 (PCR) Not Detected (NotDetected) RSV (PCR) Not Detected (NotDetected) Entero/Rhino (PCR) Not Detected (NotDetected) Administered Medications Albuterol (Albut/Ipratrop 3mg/0.5mg Neb 3 Ml Vial) 3 ml NEB QIDR VANNESSA; Protocol Stop: 11/18/23 14:59 Last Admin: 10/19/23 14:40 Dose: 3 ml Documented By: MADELIN Bupropion HCl (Bupropion Sr 150 Mg Tabcr) 150 mg PO QAM VANNESSA Stop: 11/18/23 08:59 Last Admin: 10/19/23 10:27 Dose: 150 mg Documented By: ARIANE Enoxaparin Sodium (Enoxaparin Inj 40 Mg/0.4 Ml Syr) 40 mg SQ Q24H VANNESSA Stop: 11/18/23 08:59 Last Admin: 10/19/23 10:28 Dose: 40 mg Documented By: ARIANE Fluoxetine HCl (Fluoxetine Hcl 10 Mg Cap) 10 mg PO DAILY VANNESSA Stop: 11/18/23 08:59 Last Admin: 10/19/23 10:28 Dose: 10 mg Documented By: ARIANE Fluoxetine HCl (Fluoxetine Hcl 20 Mg Cap) 20 mg PO DAILY PENDING SALE TO [facility] Stop: 11/18/23 08:59 Last Admin: 10/19/23 10:28 Dose: 20 mg Documented By: ARIANE Fluticasone/Vilanterol (Fluticasone/Vilanterol 200/25mcg 14 Puffs/Inhaler) 1 puffs INH DAILY PENDING SALE TO [facility] Stop: 11/18/23 11:29 Last Admin: 10/19/23 16:14 Dose: Not Given Documented By: CARMEN Guaifenesin (Guaifenesin 600 Mg Tabcr) 600 mg PO Q12 VANNESSA Stop: 11/18/23 08:59 Last Admin: 10/19/23 10:28 Dose: 600 mg Documented By: ARIANE Ceftriaxone Sodium 2,000 mg/ (Dextrose) 50 mls @ 100 mls/hr IV Q24H VANNESSA; Protocol Stop: 10/24/23 08:59 Last Infusion: 10/19/23 11:13 Dose: Infused Documented By: Admin: 10/19/23 10:27 Dose: 100 mls/hr Documented By: ARIANE Insulin Aspart (Insulin Aspart Per Unit Charge) 0 units SC ACHS VANNESSA Stop: 11/18/23 08:40 Last Admin: 10/19/23 13:16 Dose: 5 units Documented By: CARMEN Co-signed By: BELINDA Admin: 10/19/23 10:38 Dose: 1 units Documented By: ARIANE Co-signed By: ERIC Pantoprazole Sodium (Pantoprazole 40 Mg Tab) 40 mg PO BID VANNESSA Stop: 11/18/23 08:59 Last Admin: 10/19/23 10:28 Dose: 40 mg Documented By: ARIANE Discontinued Medications Albuterol (Albut/Ipratrop 3mg/0.5mg Neb 3 Ml Vial) 3 ml NEB NOW STA; Protocol Stop: 10/19/23 01:06 Last Admin: 10/19/23 01:19 Dose: 3 ml Documented By: BAKARI Dexamethasone (Dexamethasone Sod Inj 4 Mg/Ml Vial) 10 mg IV NOW STA Stop: 10/19/23 04:25 Last Admin: 10/19/23 04:51 Dose: 10 mg Documented By: ALEXEI Sodium Chloride (Nss) 500 mls @ 999 mls/hr IV .Q31M ONE Stop: 10/19/23 01:41 Last Infusion: 10/19/23 02:05 Dose: Infused Documented By: Admin: 10/19/23 01:32 Dose: 999 mls/hr Documented By: BAKARI Ioversol (Optiray 320 125ml) 125 ml IV ONCE ONE Stop: 10/19/23 03:09 Last Admin: 10/19/23 03:09 Dose: 115 ml Documented By: NINO Imaging Data Radiologist's Impression: Chest X-Ray 10/19/23 00:53 XR chest 1V portable HISTORY: 67 years-old Female cough, wheezing acute cough with wheezing COMPARISON: CTA chest 10/19/2023 TECHNIQUE: AP view of the chest FINDINGS: Cardiac silhouette is enlarged. Pulmonary vascular congestion. No pneumothorax or pleural effusion. Patchy bibasilar predominant airspace opacities. Bones appear grossly intact. IMPRESSION: Right greater than left patchy bibasilar opacities are suggestive of pneumonia versus aspiration pneumonitis. ACT 112: Negative or not required by law. The above report was generated using voice recognition software. It may contain grammatical, syntax or spelling errors. Electronically signed by: Yordy Flores M.D. 10/19/2023 7:05 AM Discharge Plan Visit Data Chief Complaint: Flu Like Symptoms Stated Complaint: FEVER,COUGH,WHEEZING,NO APPETITE ED Provider: Anne Astorga Discharge Problem: Multifocal pneumonia, Hypoxia, Human metapneumovirus (hMPV) pneumonia Patient Disposition: Admitted As Inpatient Discharge Instructions Interventions: ED Discharge Assessment Last Done: 10/19/23 08:42
[2023-10-19] MEDS: ALBUT/IPRATROP 3MG/0.5MG NEB 3 ML VIAL NEB STA (01:19)
[2023-10-19] MEDS: SODIUM CHLORIDE 0.9% 500 ML IV ONE (01:32)
[2023-10-19 01:45] LABS: Adenovirus PCR Not Detected (NotDetected); Bordetella parapertussis PCR Not Detected (NotDetected); Bordetella pertussis PCR Not Detected (NotDetected); Chlamydia pneumoniae PCR Not Detected (NotDetected); Coronavirus 229E PCR Not Detected (NotDetected); Coronavirus CoV-2 (COVID19)PCR Not Detected (NotDetected); Coronavirus HKU1 PCR Not Detected (NotDetected); Coronavirus NL63 PCR DETECTED (NotDetected); Coronavirus OC43PCR Not Detected (NotDetected); Human Metapneumovirus PCR DETECTED (NotDetected); Influenza A PCR Not Detected (NotDetected); Influenza B PCR Not Detected (NotDetected); Mycoplasma pneumoniae PCR Not Detected (NotDetected); Parainfluenza Virus 1 PCR Not Detected (NotDetected); Parainfluenza Virus 2 PCR Not Detected (NotDetected); Parainfluenza Virus 3 PCR Not Detected (NotDetected); Parainfluenza Virus 4 PCR Not Detected (NotDetected); Respiratory Syncytial VirusPCR Not Detected (NotDetected); Rhinovirus/Enterovirus PCR Not Detected (NotDetected)
[2023-10-19 01:49] LABS: Appearance Urine Cloudy (Clear); Bilirubin Urine Negative (Negative); Blood Urine 1+ (Negative); Color Urine Yellow; Epithelial Cell Urine Auto 20-30 /lpf (0-5); Glucose Urine UA Negative (Negative); Ketones Urine Trace (Negative); Leukocyte Esterase Urine 1+ (Negative); Nitrite Urine Positive (Negative); Protein Urine 2+ (Negative); Specific Gravity Urine 1.021 (1.000-1.030); Urobilinogen Urine Negative (Negative); pH Urine 5.5 (4.5-7.5)
[2023-10-19 01:58] LABS: Basophils # (auto) 0.01 K/uL (0.00-0.20); Basophils % (auto) 0.1 %; Eosinophils # (auto) 0.01 K/uL (0.00-0.50); Eosinophils % (auto) 0.1 %; Hematocrit (blood only) 37.1 % (37.0-47.0); Hemoglobin 12.7 g/dl (12.0-16.0); Immature Granulocytes # (auto) 0.22 K/uL (0.01-0.20); Immature Granulocytes % (auto) 1.8 %; Lymphocytes # (auto) 1.05 K/uL (1.20-3.40); Lymphocytes % (auto) 8.5 %; Mean Corpuscular Hemoglobin 31.8 pg (25.0-34.0); Mean Corpuscular Hgb Conc 34.2 g/dL (32.0-36.0); Mean Platelet Volume 10.9 fL (9.4-12.4); Monocytes # (auto) 0.61 K/uL (0.11-0.59); Monocytes % (auto) 4.9 %; Neutrophils % (auto) 84.6 %; Platelet Count 178 K/uL (130-400); RDW Coefficient of Variation 13.9 % (11.5-14.5); RDW Standard Deviation 47.5 fL (36.4-46.3); Red Blood Count 3.99 M/uL (4.20-5.40)
[2023-10-19 02:02] LABS: Bacteria Urine Automated 3+ (Negative); Cast Urine Automated 0 /lpf (0-5); RBC Urine Automated 0-4 /hpf (0-4)
[2023-10-19 02:16] LABS: Albumin Globulin Ratio 1.1 (0.9-2); Albumin Level 3.9 gm/dl (3.4-5.0); BUN Creatinine Ratio 10.8 (10-20); Bilirubin,Total 0.8 mg/dl (0.2-1.0); Calcium 9.2 mg/dl (8.6-10.3); Creatinine Clr Calc Pharmacy 54.7 ml/min; Est GFR (African American) 66.4 ml/min; Est GFR (Non-African American) 57.3 ml/min; Globulin 3.7 gm/dl (2.5-4.0); Potassium 3.7 mmol/L (3.5-5.1); Total Protein 7.6 gm/dl (6.0-8.3)
[2023-10-19] MEDS: OPTIRAY 320 125ml IV ONE (03:09)
--- NOTE | 2023-10-19 04:20 | CT Scan Report ---
Exam(s): CTA CHEST IV Amt: 115 ml optiray 320 EXAM: CT Angiography Chest With Intravenous Contrast CLINICAL HISTORY: Pulmonary embolus. TECHNIQUE: Axial computed tomographic angiography images of the chest with intravenous contrast. CTDI is 28.14 mGy and DLP is 847.16 mGy-cm. Automated exposure control was utilized for the study. A dose lowering technique was utilized adhering to the principles of ALARA. MIP reconstructed images were created and reviewed. COMPARISON: No relevant prior studies available. FINDINGS: Pulmonary arteries: Unremarkable. No pulmonary embolus. Aorta: Mild atherosclerosis. No thoracic aortic aneurysm. Lungs: Patient is opacities of both lower lobes and to a lesser degree right middle lobe is continued for aspiration and/or a multifocal pneumonia. Filling defects of the bronchi of the lower lobes may represent mucous plugs and/or aspiration. Pleural space: Unremarkable. No significant effusion. No pneumothorax. Heart: Unremarkable. No cardiomegaly. No significant pericardial effusion. No evidence of RV dysfunction. Bones/joints: There are degenerative changes of the spine. No acute fracture. Soft tissues: Unremarkable. Lymph nodes: Recent lymphadenopathy measures up to 1.1 cm. IMPRESSION: 1. No pulmonary embolus. 2. Patient is opacities of both lower lobes and to a lesser degree right middle lobe is continued for aspiration and/or a multifocal pneumonia. 3. Filling defects of the bronchi of the lower lobes may represent mucous plugs and/or aspiration. 4. Recent lymphadenopathy measures up to 1.1 cm. This may be infectious, inflammatory or neoplastic. Electronically signed by: Mariel Gleason MD 10/19/23 04:19 AM
[2023-10-19] MEDS: DEXAMETHASONE SOD INJ 4 MG/ML VIAL IV STA (04:51)
--- NOTE | 2023-10-19 05:57 | History & Physical Report ---
Date of Service October 19, 2023 Assessment & Plan (1) Acute hypoxic respiratory failure: Plan: 67-year-old female presenting with 1 week of respiratory illness, acute hypoxic respiratory failure on arrival with saturation of 80% on room air at rest. She is presently on 4 L of supplemental oxygen by nasal cannula with adequate oxygenation. No respiratory distress or conversational dyspnea. She does have elevated white blood cell count = 12.4. Respiratory bio fire panel positive for human metapneumovirus as well as non-COVID coronavirus. CT findings as above with opacities of both lower lobes concerning for aspiration and/or multifocal pneumonia as well as filling defect of the bronchi of the left lower lobe representing possible mucous plug or aspiration. Also comment on new lymphadenopathy measuring 1.1 cm which could be infectious, inflammatory or n eoplastic. Admit to medical Maintain droplet isolation precautions Continue supplemental oxygen with humidity, goal saturation 94% Check procalcitonin for possible bacterial pneumonia Robitussin with codeine as needed for cough suppressant Albuterol neb as needed for shortness of breath or wheeze Mucinex twice daily Flutter valve and chest PT Tylenol as needed for pain or fever Zofran as needed for nausea - repeat CT as an outpatient to monitor for resolution of lymphadenopathy (2) GERD (gastroesophageal reflux disease): Plan: chronic. Stable. Continue famotidine 40 mg p.o. every afternoon Continue Protonix 40 mg p.o. twice daily (3) Anxiety with depression: Plan: Chronic. Stable. Continue Wellbutrin 150 mg p.o. every morning Continue Prozac 30 mg p.o. daily Continue lorazepam 0.5 mg p.o. nightly (4) CESILIA (obstructive sleep apnea): Plan: Chronic. Stable. CPAP nightly (5) DM2 (diabetes mellitus, type 2): Plan: Chronic. Well-controlled. Last hemoglobin A1c = 6.6 on 07/26/2023 Will hold metformin Insulin sliding scale with goal blood sugar [id number] (6) UTI (urinary tract infection): Plan: urinalysis suggestive of UTI. Follow culture results Ceftriaxone 2 g IV daily F/E/N - patient given normal saline in the ER. Encourage p.o. intake, electrolytes within normal limits, consistent carb diet as tolerated ProphylaxisLovenox for DVT prophylaxis Codefull per discussion with patient Dispositionadmit History of Present Illness Chief Complaint: Cough, hypoxia Primary Care Provider: Tuyet Medina MD Gemini Santos is a 67-year-old female with history of diabetes on metformin, CESILIA on CPAP, hyperlipidemia and GERD presenting with acute hypoxic respiratory failure secondary to URI. Patient was recently on vacation in [facility] from 10/02/2023 through 10/10/2023. She reports developing an illness on 10/04/2023 with nausea, vomiting and diarrhea. Her symptoms lasted several days then resolved. Over the last week she has had persistent dry cough as well as intermittent fever/chills and fatigue. She has had poor appetite and decreased oral intake as well. She denies chest pain or shortness of breath. No current nausea/vomiting or diarrhea. No additional complaints at this time. She has been taking Robitussin at home as well as her albuterol inhaler with minimal improvement. She was seen in a telehealth visit on and was prescribed Tessalon Perles which she has been taking with minimal relief. Patient with no underlying lung disease. She has had bronchitis in the past and has used albuterol but has never been diagnosed with asthma or COPD. She is compliant with her CPAP at night. In the ER patient afebrile, hemodynamically stable. Hypoxic on room air at 88% at rest which decreased to 85% with ambulation in the room. She has been placed on 4 L oxygen by nasal cannula with saturations in the low to mid 90s. ER course: Albuterol 3 mL neb Normal saline 500 mL IV Dexamethasone 10 mg IV Allergies Allergy/AdvReac Type Severity Reaction Status Date / Time No Known Drug Allergies Allergy Unknown . Verified 09/09/23 10:07 adhesive AdvReac Intermediate Blistering Verified 09/09/23 10:07 of the Skin Home Medications Medication Instructions Recorded Confirmed Type psyllium husk 0.4 gram capsule 0.4 g PO BID 03/18/22 09/09/23 History (Daily Fiber) multivitamin 1 tab PO BID 06/12/22 09/09/23 History albuterol sulfate 90 mcg/actuation 1 - 2 puff inhalation Q4H PRN 07/15/22 10/19/23 Rx aerosol inhaler shortness of breath or wheezing #8.5 grams benzonatate 100 mg capsule See Rx Instructions PO TID PRN 03/12/23 10/19/23 Rx cough #30 caps bupropion HCl 150 mg tablet,12 hr 150 mg PO QAM #90 ea 04/13/23 10/19/23 Rx sustained-release fluoxetine 20 mg capsule 20 mg PO DAILY anxiety #90 caps 04/13/23 10/19/23 Rx metformin 500 mg tablet,extended 500 mg PO DAILY #30 tabs 04/19/23 10/19/23 Rx release 24 hr fluticasone propionate 50 2 spray intranasal DAILY PRN 05/06/23 09/09/23 History mcg/actuation nasal Allergy Symptoms spray,suspension (Flonase Allergy Relief) famotidine 40 mg tablet 40 mg PO PM #90 tabs 07/16/23 10/19/23 Rx pantoprazole 40 mg tablet,delayed 40 mg PO BID #90 tabs 07/27/23 10/19/23 Rx release (Protonix) hwknh-amztszaaf-MN-acetaminoph 50 30 ml PO HS PRN Cough 08/19/23 09/09/23 History mg-60 mg-30 mg-650 mg/30mL oral soln atorvastatin 10 mg tablet 10 mg PO QPM 08/25/23 10/19/23 History fluoxetine 10 mg capsule 10 mg PO DAILY anxiety #90 caps 08/30/23 10/19/23 Rx lorazepam 0.5 mg tablet 0.5 mg PO HS PRN anxiety #30 tabs 09/21/23 10/19/23 Rx Past Med/Surg History Medical History Hx of bronchitis reason for inhaler, rarely uses DM2 (diabetes mellitus, type 2) Sleep apnea cpap History of COVID-19 11/2021 - fatigue, congestion, cough, fever - resolved IBS (irritable bowel syndrome) Fatty infiltration of liver History of depression Acid reflux disease Anxiety Hyperlipidemia Surgical History Hx laparoscopic cholecystectomy (08/25/23) Robotic Laparoscopic Cholecystectomy - Christopher Ramirez DO, FACS History of kidney surgery childhood History of colonoscopy H/O left cataract extraction 08/18/21 H/O right cataract extraction 09/08/21 S/P section x2 S/P wisdom tooth extraction Family History Father Myocardial infarction Stroke Hypertension Heart disease Mother Hypertension Clotting disorder Brother Bladder cancer Denies family history of Ovarian cancer Prostate cancer Breast cancer Colorectal cancer Social History Smoking Status: Former smoker Tobacco Type: Cigarettes Age Started Using Tobacco: 19; Age Quit Using Tobacco: 45; packs per day: 0.5; Cigarettes Per Day: 1/2 pk/day; Second Hand Exposure: No; Do You Dip or Chew Tobacco: No; Hx Alcohol Use: Yes Alcohol type: wine Alcohol Intake Frequency: 4 or More x per/Week Alcohol Intake Frequency Comment: 2 glasses of wine daily Hx Substance Use: No Preferred Language: Greenlandic Communication Ability: Effective Visual Impairment: No Limitations Hearing Ability: Normal 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: No Beliefs That Will Affect Care: None marital status: Current Living Situation: Spouse current occupational status: retired 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 How many Children do You have: 2 Feels Safe at Home: Yes Childhood Exposure to Second-Hand Smoke: No Diet: regular Diet Comment: regular Dental Care, Regularly: Yes Physical Activity Frequency: Does not Exercise Seatbelt Use: always Sunscreen Use: Yes Assistive Devices: CPAP and Glasses Review of Systems Review of Systems: All systems reviewed & are unremarkable except as noted in HPI & below Physical Exam Physical Exam: General: patient resting comfortably, NAD, Ill in appearance, AA&O x 4 Skin: warm, dry, intact, no rashes or lesions HEENT: NC/AT, PERRL, EOMI, anicteric sclera, conjunctiva without injection, external ear normal to inspection and nontender, nares patent, moist mucus membranes, dentition intact, no oropharyngeal lesions, neck supple, trachea midline, no LAD, no thyromegaly, no JVD Heart: +S1/S2, regular, no m/r/g Lungs: equal air entry bilaterally, scattered end expiratory wheezes, some rhonchorous breath sounds as well. Patient speaking in complete sentences with no conversational dyspnea Abd: +BS, soft, NT/ND, no masses/organomegaly/ascites Ext: warm, 2+ pulses in UE/LE bilaterally, no clubbing/cyanosis or edema Neuro: nonfocal, patient AA&O x 4, speech intact, no facial droop, moving all extremities on command with equal strength 5/5 Results & Data Results & Data Vital Signs (Past 12 Hours) Vital Signs Temp Pulse Pulse Resp BP BP Pulse Ox 10/19/23 05:00 83 20 127/64 91 10/19/23 04:30 83 19 93 10/19/23 04:08 83 10/19/23 04:00 83 13 90 10/19/23 03:30 88 20 92 10/19/23 03:11 94 H 25 H 92 10/19/23 03:00 81 20 126/75 90 10/19/23 02:30 95 H 22 91 10/19/23 02:30 126/75 10/19/23 02:00 91 H 20 90 10/19/23 02:00 137/54 L 10/19/23 01:45 20 93 10/19/23 01:42 22 88 L 10/19/23 01:30 100 H 23 91 10/19/23 01:05 102 H 22 92 10/19/23 01:02 99 H 17 149/86 H 90 10/19/23 01:00 98 H 23 91 10/19/23 01:00 149/86 H 10/19/23 00:39 107 H 10/19/23 00:38 104 H 17 180/85 H 92 10/19/23 00:18 37.7 C H 108 H 22 140/70 99 O2 Del Method O2 Flow Rate 10/19/23 05:00 Nasal Cannula 4 10/19/23 04:30 Nasal Cannula 4 10/19/23 04:08 10/19/23 04:00 Nasal Cannula 3 10/19/23 03:30 Nasal Cannula 3 10/19/23 03:11 Nasal Cannula 3 10/19/23 03:00 Nasal Cannula 3 10/19/23 02:30 Nasal Cannula 3 10/19/23 02:30 10/19/23 02:00 Nasal Cannula 2 10/19/23 02:00 10/19/23 01:45 Nasal Cannula 2 10/19/23 01:42 Room Air 10/19/23 01:30 Nasal Cannula 2 10/19/23 01:05 Room Air 10/19/23 01:02 Room Air 10/19/23 01:00 Nasal Cannula 2 10/19/23 01:00 10/19/23 00:39 10/19/23 00:38 Room Air 10/19/23 00:18 Room Air Laboratory Results Laboratory Results WBC 12.40 K/ul (4.8-10.8) H 10/19/23 01:33 RBC 3.99 M/uL (4.20-5.40) L 10/19/23 01:33 Hgb 12.7 g/dl (12.0-16.0) 10/19/23 01:33 Hct 37.1 % (37.0-47.0) 10/19/23 01:33 MCV 93.0 fL (80.0-100.0) 10/19/23 01:33 MCH 31.8 pg (25.0-34.0) 10/19/23 01: MCHC 34.2 g/dL (32.0-36.0) 10/19/23 01:33 RDW Std Deviation 47.5 fL (36.4-46.3) H 10/19/23 01:33 RDW Coeff of Sabino 13.9 % (11.5-14.5) 10/19/23 01:33 Plt Count 178 K/uL (130-400) 10/19/23 01:33 MPV 10.9 fL (9.4-12.4) 10/19/23 01:33 Immature Gran % (Auto) 1.8 % 10/19/23 01:33 Neut % (Auto) 84.6 % 10/19/23 01:33 Lymph % (Auto) 8.5 % 10/19/23 01:33 Andrew % (Auto) 4.9 % 10/19/23 01:33 Eos % (Auto) 0.1 % 10/19/23 01:33 Baso % (Auto) 0.1 % 10/19/23 01:33 Neut # (Auto) 10.50 K/uL (1.40-6.50) H 10/19/23 01:33 Lymph # (Auto) 1.05 K/uL (1.20-3.40) L 10/19/23 01:33 Andrew # (Auto) 0.61 K/uL (0.11-0.59) H 10/19/23 01:33 Eos # (Auto) 0.01 K/uL (0.00-0.50) 10/19/23 01:33 Baso # (Auto) 0.01 K/uL (0.00-0.20) 10/19/23 01:33 Immature Gran # (Auto) 0.22 K/uL (0.01-0.20) H 10/19/23 01:33 Sodium 131 mmol/L (136-145) L 10/19/23 01:33 Potassium 3.7 mmol/L (3.5-5.1) 10/19/23 01:33 Chloride 97 mmol/L (98-107) L 10/19/23 01:33 Carbon Dioxide 25 mmol/L (21-32) 10/19/23 01:33 Anion Gap 9 (3-11) 10/19/23 01:33 BUN 11 mg/dl (6-23) 10/19/23 01:33 Creatinine 1.02 mg/dl (0.6-1.2) 10/19/23 01:33 Est Cr Clr Drug Dosing 54.7 ml/min 10/19/23 01:33 Est GFR ( Amer) 66.4 ml/min 10/19/23 01:33 Est GFR (Non-Af Amer) 57.3 ml/min 10/19/23 01:33 BUN/Creatinine Ratio 10.8 (10-20) 10/19/23 01:33 Glucose 115 mg/dl (70-99(Fasting)) H 10/19/23 01:33 Calcium 9.2 mg/dl (8.6-10.3) 10/19/23 01:33 Total Bilirubin 0.8 mg/dl (0.2-1.0) 10/19/23 01:33 AST 21 U/L (13-39) 10/19/23 01:33 ALT 26 U/L (7-52) 10/19/23 01:33 Alkaline Phosphatase 61 U/L (34-104) 10/19/23 01:33 Total Protein 7.6 gm/dl (6.0-8.3) 10/19/23 01:33 Albumin 3.9 gm/dl (3.4-5.0) 10/19/23 01:33 Globulin 3.7 gm/dl (2.5-4.0) 10/19/23 01:33 Albumin/Globulin Ratio 1.1 (0.9-2) 10/19/23 01:33 Urine Color Yellow 03/12/24 01:33 Urine Appearance Cloudy (Clear) A 10/19/23 01:33 Urine pH 5.5 (4.5-7.5) 10/19/23 01:33 Ur Specific Wilkinson 1.021 (1.000-1.030) 10/19/23 01:33 Urine Protein 2+ (Negative) H 10/19/23 01:33 Urine Glucose (UA) Negative (Negative) 10/19/23 01: Urine Ketones Trace (Negative) H 10/19/23 01:33 Urine Blood 1+ (Negative) H 10/19/23 01:33 Urine Nitrite Positive (Negative) A 10/19/23 01: Urine Bilirubin Negative (Negative) 10/19/23 01: Urine Urobilinogen Negative (Negative) 10/19/23 01:33 Ur Leukocyte Esterase 1+ (Negative) H 10/19/23 01:33 Urine WBC (Auto) 10-30 /hpf (0-5) H 10/19/23 01:33 Urine RBC (Auto) 0-4 /hpf (0-4) 10/19/23 01:33 U Hyaline Cast (Auto) 0 /lpf (0-5) 10/19/23 01:33 U Epithel Cells (Auto) 20-30 /lpf (0-5) H 10/19/23 01:33 Urine Bacteria (Auto) 3+ (Negative) H 10/19/23 01:33 Adenovirus (PCR) Not Detected (NotDetected) 10/19/23 00:37 B. pertussis DNA (PCR) Not Detected (NotDetected) 10/19/23 00:37 B.parapertussis DNA PCR Not Detected (NotDetected) 10/19/23 00:37 C. pneumoniae DNA (PCR) Not Detected (NotDetected) 10/19/23 00:37 Coronavirus OC43 (PCR) Not Detected (NotDetected) 10/19/23 00:37 Coronavirus HKU1 (PCR) Not Detected (NotDetected) 10/19/23 00:37 Coronavirus 229E (PCR) Not Detected (NotDetected) 10/19/23 00:37 SARS-CoV-2 (PCR) Not Detected (NotDetected) 10/19/23 00:37 Coronavirus NL63 (PCR) DETECTED (NotDetected) A 10/19/23 00:37 Human Metapneumovir PCR DETECTED (NotDetected) A 10/19/23 00:37 Influenza Type A (PCR) Not Detected (NotDetected) 10/19/23 00:37 Influenza Type B (PCR) Not Detected (NotDetected) 10/19/23 00:37 M. pneumoniae (PCR) Not Detected (NotDetected) 10/19/23 00:37 Parainfluenza 1 (PCR) Not Detected (NotDetected) 10/19/23 00:37 Parainfluenza 2 (PCR) Not Detected (NotDetected) 10/19/23 00:37 Parainfluenza 3 (PCR) Not Detected (NotDetected) 10/19/23 00:37 Parainfluenza 4 (PCR) Not Detected (NotDetected) 10/19/23 00:37 RSV (PCR) Not Detected (NotDetected) 10/19/23 00:37 Entero/Rhino (PCR) Not Detected (NotDetected) 10/19/23 00:37 Impressions Chest CTA 10/19/23 02:33 Exam(s): CTA CHEST IV Amt: 115 ml optiray 320 EXAM: CT Angiography Chest With Intravenous Contrast CLINICAL HISTORY: Pulmonary embolus. TECHNIQUE: Axial computed tomographic angiography images of the chest with intravenous contrast. CTDI is 28.14 mGy and DLP is 847.16 mGy-cm. Automated exposure control was utilized for the study. A dose lowering technique was utilized adhering to the principles of ALARA. MIP reconstructed images were created and reviewed. COMPARISON: No relevant prior studies available. FINDINGS: Pulmonary arteries: Unremarkable. No pulmonary embolus. Aorta: Mild atherosclerosis. No thoracic aortic aneurysm. Lungs: Patient is opacities of both lower lobes and to a lesser degree right middle lobe is continued for aspiration and/or a multifocal pneumonia. Filling defects of the bronchi of the lower lobes may represent mucous plugs and/or aspiration. Pleural space: Unremarkable. No significant effusion. No pneumothorax. Heart: Unremarkable. No cardiomegaly. No significant pericardial effusion. No evidence of RV dysfunction. Bones/joints: There are degenerative changes of the spine. No acute fracture. Soft tissues: Unremarkable. Lymph nodes: Recent lymphadenopathy measures up to 1.1 cm. IMPRESSION: 1. No pulmonary embolus. 2. Patient is opacities of both lower lobes and to a lesser degree right middle lobe is continued for aspiration and/or a multifocal pneumonia. 3. Filling defects of the bronchi of the lower lobes may represent mucous plugs and/or aspiration. 4. Recent lymphadenopathy measures up to 1.1 cm. This may be infectious, inflammatory or neoplastic. Electronically signed by: Mariel Gleason MD 10/19/23 04:19 AM Code Status & VTE Plan VTE Prophylaxis Plan VTE Prophylaxis will be ordered: Yes PG Care Time/CCT Total # of Minutes Spent Total Time Spent with Patient: Total time spent is greater than 50% in coordination of care (as documented) at patient's floor/unit and/or counseling patient: Coding Level of Care Code 24135 INT INP/OBS CARE 3/75MIN Diagnoses Acute hypoxic respiratory failure J96.01 GERD (gastroesophageal reflux disease) K21.9 Anxiety with depression F41.8 CESILIA (obstructive sleep apnea) G47.33 DM2 (diabetes mellitus, type 2) E11.9 UTI (urinary tract infection) N39.0
--- NOTE | 2023-10-19 07:07 | XRay Report ---
XR chest 1V portable HISTORY: 67 years-old Female cough, wheezing acute cough with wheezing COMPARISON: CTA chest 10/19/2023 TECHNIQUE: AP view of the chest FINDINGS: Cardiac silhouette is enlarged. Pulmonary vascular congestion. No pneumothorax or pleural effusion. P atchy bibasilar predominant airspace opacities. Bones appear grossly intact. IMPRESSION: Right greater than left patchy bibasilar opacities are suggestive of pneumonia versus asp iration pneumonitis. ACT 112: Negative or not required by law. The above report was generated using voice recognition software. It may contain grammatical, syntax o r spelling errors. Electronically signed by: Yordy Flores M.D. 10/19/2023 7:05 AM
[2023-10-19] MEDS ORDERED: GLUCAGON FOR INJ 1 MG VIAL SQ PRN (08:41)
[2023-10-19] MEDS ORDERED: ONDANSETRON INJ 2 MG/ML 2 ML VIAL IV PRN (08:41)
[2023-10-19] MEDS ORDERED: CARBOHYDRATES FOR HYPOGLYCEMIA PO PRN (08:41)
[2023-10-19] MEDS ORDERED: ACETAMINOPHEN 325 MG TAB PO PRN (08:41)
[2023-10-19] MEDS ORDERED: DEXTROSE 50% 50 ML SYRINGE IV PRN (08:41)
[2023-10-19] MEDS ORDERED: GLUCOSE 40% GEL 15 GM TUBE PO PRN (08:41)
[2023-10-19] MEDS ORDERED: GLUCOSE 10 TAB/TUBE PO PRN (08:41)
[2023-10-19] MEDS ORDERED: ALBUTEROL 0.5% NEB SOLN 2.5 MG/0.5 ML VIAL NEB PRN (08:41)
[2023-10-19 09:32] LABS: Magnesium 1.6 mg/dl (1.7-2.4); Phosphorus 1.8 mg/dl (2.5-4.9)
[2023-10-19] MEDS: cefTRIAXone SODIUM 2,000 MG in DEXTROSE 5 % MINI-B 50 ML IV SCH (10:27)
[2023-10-19] MEDS: buPROPion SR 150 MG TABCR PO SCH (10:27)
[2023-10-19] MEDS: ENOXAPARIN INJ 40 MG/0.4 ML SYR SQ SCH (10:28)
[2023-10-19] MEDS: FLUoxetine HCL 10 MG CAP PO SCH (10:28)
[2023-10-19] MEDS: PANTOprazole 40 MG TAB PO SCH (10:28)
[2023-10-19] MEDS: FLUoxetine HCL 20 MG CAP PO SCH (10:28)
[2023-10-19] MEDS: guaiFENesin 600 MG TABCR PO SCH (10:28)
[2023-10-19] MEDS: INSULIN ASPART PER UNIT CHARGE SC SCH (10:38)
[2023-10-19 11:30] LABS: Base Excess ABG -1.3 mEq/L (-9-1.8); HCO3 ABG 23 mmol/L (19-24); Oxygen Saturation ABG 99.6 % (90-95); PCO2 ABG 35 mmHg (35-46); PO2 ABG 132 mmHg (80-95); pH ABG 7.42 (7.35-7.45)
[2023-10-19] MEDS ORDERED: dexAMETHasone 10 MG in DEXTROSE 5% 25 ML IV SCH (11:30)
[2023-10-19 11:32] LABS: Allen Test Pos (Pos)
[2023-10-19] MEDS: ALBUT/IPRATROP 3MG/0.5MG NEB 3 ML VIAL NEB SCH (14:40)
[2023-10-19] MEDS: FLUTICASONE/VILANTEROL 200/25MCG 14 PUFFS/INHALER INH SCH (16:14)
--- NOTE | 2023-10-19 17:54 | Hospitalist Progress Note ---
Date of Service October 19, 2023 Assessment & Plan (1) Acute hypoxic respiratory failure: Plan: 67-year-old female presenting with 1 week of respiratory illness, acute hypoxic respiratory failure on arrival with saturation of 80% on room air at rest. She is presently on 4 L of supplemental oxygen by nasal cannula with adequate oxygenation. No respiratory distress or conversational dyspnea. She does have elevated white blood cell count = 12.4. Respiratory bio fire panel positive for human metapneumovirus as well as non-COVID coronavirus. CT findings as above with opacities of both lower lobes concerning for aspiration and/or multifocal pneumonia as well as filling defect of the bronchi of the left lower lobe representing possible mucous plug or aspiration. Also comment on new lymphadenopathy measuring 1.1 cm which could be infectious, inflammatory or n eoplastic. Admit to medical Maintain droplet isolation precautions Continue supplemental oxygen with humidity, goal saturation 94% - iv steroids Check procalcitonin for possible bacterial pneumonia Robitussin with codeine as needed for cough suppressant Albuterol neb as needed for shortness of breath or wheeze Mucinex twice daily Flutter valve and chest PT Tylenol as needed for pain or fever Zofran as needed for nausea - repeat CT as an outpatient to monitor for resolution of lymphadenopathy (2) GERD (gastroesophageal reflux disease): Plan: chronic. Stable. Continue famotidine 40 mg p.o. every afternoon Continue Protonix 40 mg p.o. twice daily (3) Anxiety with depression: Plan: Chronic. Stable. Continue Wellbutrin 150 mg p.o. every morning Continue Prozac 30 mg p.o. daily Continue lorazepam 0.5 mg p.o. nightly (4) CESILIA (obstructive sleep apnea): Plan: Chronic. Stable. CPAP nightly (5) DM2 (diabetes mellitus, type 2): Plan: Chronic. Well-controlled. Last hemoglobin A1c = 6.6 on 07/26/2023 Will hold metformin Insulin sliding scale with goal blood sugar [id number] (6) UTI (urinary tract infection): Plan: urinalysis suggestive of UTI. Follow culture results Ceftriaxone 2 g IV daily F/E/N - patient given normal saline in the ER. Encourage p.o. intake, electrolytes within normal limits, consistent carb diet as tolerated ProphylaxisLovenox for DVT prophylaxis Codefull per discussion with patient Dispositionadmit (7) Asthmatic bronchitis: Plan: start iv steroids duonebs inhalers wean off oxygen Admission and Anticipated Discharge Date Admission Date: October 19, 2023 Subjective reports feeling much better , SOB is better , on venti mask Review of Systems Review of Systems: All systems reviewed & are unremarkable except as noted in Subjective Physical Exam Physical Exam: head atraumatic neck supple lungs wheezing b/l heart S1S2 regular abdomen soft, NT, ND, BS present extremities no edema, no cyanosis neuro AAO x3 Results & Data Results & Data Vital Signs (Past 12 Hours) Vital Signs Temp Pulse Pulse Pulse Resp BP BP 10/19/23 15:22 74 18 10/19/23 15:04 36.5 C 82 17 116/72 10/19/23 13:06 10/19/23 12:33 36.7 C 74 18 146/70 H 10/19/23 11:05 77 16 10/19/23 11:04 15 10/19/23 08:13 10/19/23 08:00 78 24 137/79 10/19/23 07:51 76 10/19/23 07:30 74 21 136/75 10/19/23 07:25 80 21 157/78 H 10/19/23 07:00 74 16 168/87 H 10/19/23 07:00 37.2 C 77 22 136/75 10/19/23 06:01 133/77 10/19/23 06:01 82 17 10/19/23 06:00 78 22 Pulse Ox O2 Del Method O2 Flow Rate 10/19/23 15:22 96 Nasal Cannula 4 10/19/23 15:04 94 Room Air 10/19/23 13:06 Oxymask 4 10/19/23 12:33 96 Oxymask 4 10/19/23 11:05 94 Oxymask 5 10/19/23 11:04 94 Oxymask 5 10/19/23 08:13 88 L Nasal Cannula, Oxymask 4 10/19/23 08:00 89 L Nasal Cannula 4 10/19/23 07:51 10/19/23 07:30 90 Nasal Cannula 4 10/19/23 07:25 93 Nasal Cannula 4 10/19/23 07:00 91 Nasal Cannula 4 10/19/23 07:00 93 Nasal Cannula 4 10/19/23 06:01 10/19/23 06:01 92 Nasal Cannula 4 10/19/23 06:00 93 Nasal Cannula 4 PG Care Time/CCT Total # of Minutes Spent Total Time Spent with Patient: Total time spent is greater than 50% in coordination of care (as documented) at patient's floor/unit and/or counseling patient: Coding Level of Care Code 02821 SUB INP/OBS CARE 2/35MIN Diagnoses Acute hypoxic respiratory failure J96.01 GERD (gastroesophageal reflux disease) K21.9 Anxiety with depression F41.8 CESILIA (obstructive sleep apnea) G47.33 DM2 (diabetes mellitus, type 2) E11.9 UTI (urinary tract infection) N39.0 Asthmatic bronchitis J45.909
[2023-10-19] MEDS: FAMOTIDINE 40 MG TABLET PO SCH (20:40)
[2023-10-19] MEDS: ATORVASTATIN 10 MG TAB PO SCH (20:40)
[2023-10-19] MEDS: LORazepam 0.5 MG TAB PO PRN (20:46)
--- NOTE | 2023-10-20 06:18 | Electrocardiogram Report ---
Test Reason : Blood Pressure : / mmHG Vent. Rate : 096 BPM Atrial Rate : 096 BPM P-R Int : 124 ms QRS Dur : 086 ms QT Int : 338 ms P-R-T Axes : 069 006 064 degrees QTc Int : 427 ms Sinus rhythm with Premature atrial complexes with Aberrant conduction Nonspecific ST abnormality Abnormal ECG When compared with ECG of 13-AUG-2023 12:46, Aberrant conduction is now Present Vent. rate has increased BY 33 BPM Confirmed by Jozef Vasquez ([id number]) on 10/20/2023 6:18:09 AM Referred By: REFERRED SELF Confirmed By:Jozef Vasquez
[2023-10-20 08:46] LABS: Hematocrit (blood only) 37.5 % (37.0-47.0); Hemoglobin 12.4 g/dl (12.0-16.0); Mean Corpuscular Hgb Conc 33.1 g/dL (32.0-36.0); Mean Corpuscular Volume 93.8 fL (80.0-100.0); Mean Platelet Volume 11.6 fL (9.4-12.4); Platelet Count 240 K/uL (130-400); RDW Coefficient of Variation 13.6 % (11.5-14.5); RDW Standard Deviation 46.9 fL (36.4-46.3); White Blood Count 11.46 K/ul (4.8-10.8)
[2023-10-20] MEDS: dexAMETHasone 10 MG in SYRINGE 0 ML IV SCH (09:21)
[2023-10-20 09:24] LABS: Calcium 9.7 mg/dl (8.6-10.3); Potassium 3.6 mmol/L (3.5-5.1)
[2023-10-20 09:30] LABS: BUN Creatinine Ratio 22.6 (10-20); Est GFR (African American) 74.2 ml/min
--- NOTE | 2023-10-20 15:49 | Hospitalist Progress Note ---
Date of Service October 20, 2023 Assessment & Plan (1) Acute hypoxic respiratory failure: Plan: 67-year-old female presenting with 1 week of respiratory illness, acute hypoxic respiratory failure on arrival with saturation of 80% on room air at rest. She is presently on 4 L of supplemental oxygen by nasal cannula with adequate oxygenation. No respiratory distress or conversational dyspnea. She does have elevated white blood cell count = 12.4. Respiratory bio fire panel positive for human metapneumovirus as well as non-COVID coronavirus. CT findings as above with opacities of both lower lobes concerning for aspiration and/or multifocal pneumonia as well as filling defect of the bronchi of the left lower lobe representing possible mucous plug or aspiration. Also comment on new lymphadenopathy measuring 1.1 cm which could be infectious, inflammatory or n eoplastic. asthmatic bronchitis continue IV steroids, nebs inhalers wean off oxygen as tolerated - repeat CT as an outpatient to monitor for resolution of lymphadenopathy (2) GERD (gastroesophageal reflux disease): Plan: chronic. Stable. Continue famotidine 40 mg p.o. every afternoon Continue Protonix 40 mg p.o. twice daily (3) Anxiety with depression: Plan: Chronic. Stable. Continue Wellbutrin 150 mg p.o. every morning Continue Prozac 30 mg p.o. daily Continue lorazepam 0.5 mg p.o. nightly (4) CESILIA (obstructive sleep apnea): Plan: Chronic. Stable. CPAP nightly (5) DM2 (diabetes mellitus, type 2): Plan: Chronic. Well-controlled. Last hemoglobin A1c = 6.6 on 07/26/2023 Will hold metformin Insulin sliding scale with goal blood sugar 918682 (6) UTI (urinary tract infection): Plan: urinalysis suggestive of UTI. uine culture gram negative bacilli Ceftriaxone 2 g IV daily F/E/N - patient given normal saline in the ER. Encourage p.o. intake, electrolytes within normal limits, consistent carb diet as tolerated ProphylaxisLovenox for DVT prophylaxis Codefull per discussion with patient Dispositionadmit (7) Asthmatic bronchitis: Plan: start iv steroids duonebs inhalers wean off oxygen Admission and Anticipated Discharge Date Admission Date: October 19, 2023 Subjective reports feeling much better , SOB is better , on 4l O2 Review of Systems Review of Systems: All systems reviewed & are unremarkable except as noted in Subjective Physical Exam Physical Exam: head atraumatic neck supple lungs wheezing b/l improving heart S1S2 regular abdomen soft, NT, ND, BS present extremities no edema, no cyanosis neuro AAO x3 Results & Data Results & Data Vital Signs (Past 12 Hours) Vital Signs Temp Pulse Resp BP Pulse Ox O2 Del Method O2 Flow Rate 10/20/23 15:31 81 18 91 Room Air 10/20/23 11:55 Nasal Cannula 2 10/20/23 11:05 65 18 97 Nasal Cannula 2 10/20/23 07:18 64 18 95 Nasal Cannula 4 10/20/23 06:55 36.5 C 75 16 135/71 97 Nasal Cannula 4 PG Care Time/CCT Total # of Minutes Spent Total Time Spent with Patient: Total time spent is greater than 50% in coordination of care (as documented) at patient's floor/unit and/or counseling patient: Coding Level of Care Code 27439 SUB INP/OBS CARE 2/35MIN Diagnoses Acute hypoxic respiratory failure J96.01 GERD (gastroesophageal reflux disease) K21.9 Anxiety with depression F41.8 CESILIA (obstructive sleep apnea) G47.33 DM2 (diabetes mellitus, type 2) E11.9 UTI (urinary tract infection) N39.0 Asthmatic bronchitis J45.909
[2023-10-21 07:54] LABS: Hematocrit (blood only) 35.5 % (37.0-47.0); Hemoglobin 11.6 g/dl (12.0-16.0); Mean Corpuscular Hemoglobin 30.9 pg (25.0-34.0); Mean Corpuscular Hgb Conc 32.7 g/dL (32.0-36.0); Mean Corpuscular Volume 94.4 fL (80.0-100.0); Mean Platelet Volume 11.2 fL (9.4-12.4); Platelet Count 251 K/uL (130-400); RDW Coefficient of Variation 13.8 % (11.5-14.5); RDW Standard Deviation 48.3 fL (36.4-46.3); Red Blood Count 3.76 M/uL (4.20-5.40); White Blood Count 10.57 K/ul (4.8-10.8)
[2023-10-21 08:08] LABS: BUN Creatinine Ratio 24.7 (10-20); Calcium 9.5 mg/dl (8.6-10.3); Creatinine Clr Calc Pharmacy 65.7 ml/min; Est GFR (African American) 82.8 ml/min; Est GFR (Non-African American) 71.4 ml/min; Magnesium 2.1 mg/dl (1.7-2.4); Potassium 4.4 mmol/L (3.5-5.1)
--- NOTE | 2023-10-21 18:22 | Hospitalist Progress Note ---
Date of Service October 21, 2023 Assessment & Plan (1) Acute hypoxic respiratory failure: Plan: 67-year-old female presenting with 1 week of respiratory illness, acute hypoxic respiratory failure on arrival with saturation of 80% on room air at rest. She is presently on 4 L of supplemental oxygen by nasal cannula with adequate oxygenation. No respiratory distress or conversational dyspnea. She does have elevated white blood cell count = 12.4. Respiratory bio fire panel positive for human metapneumovirus as well as non-COVID coronavirus. CT findings as above with opacities of both lower lobes concerning for aspiration and/or multifocal pneumonia as well as filling defect of the bronchi of the left lower lobe representing possible mucous plug or aspiration. Also comment on new lymphadenopathy measuring 1.1 cm which could be infectious, inflammatory or n eoplastic. asthmatic bronchitis continue IV steroids, nebs inhalers wean off oxygen as tolerated - repeat CT as an outpatient to monitor for resolution of lymphadenopathy (2) GERD (gastroesophageal reflux disease): Plan: chronic. Stable. Continue famotidine 40 mg p.o. every afternoon Continue Protonix 40 mg p.o. twice daily (3) Anxiety with depression: Plan: Chronic. Stable. Continue Wellbutrin 150 mg p.o. every morning Continue Prozac 30 mg p.o. daily Continue lorazepam 0.5 mg p.o. nightly (4) CESILIA (obstructive sleep apnea): Plan: Chronic. Stable. CPAP nightly (5) DM2 (diabetes mellitus, type 2): Plan: Chronic. Well-controlled. Last hemoglobin A1c = 6.6 on 07/26/2023 Will hold metformin Insulin sliding scale with goal blood sugar [id number] (6) UTI (urinary tract infection): Plan: urinalysis suggestive of UTI. uine culture Klebsiella pneumoniae Ceftriaxone 2 g IV daily F/E/N - patient given normal saline in the ER. Encourage p.o. intake, electrolytes within normal limits, consistent carb diet as tolerated ProphylaxisLovenox for DVT prophylaxis Codefull per discussion with patient Dispositionadmit (7) Asthmatic bronchitis: Plan: started iv steroids duonebs inhalers off oxygen Admission and Anticipated Discharge Date Admission Date: October 19, 2023 Subjective reports feeling much better , SOB is better , on 4l O2 Review of Systems Review of Systems: All systems reviewed & are unremarkable except as noted in Subjective Physical Exam Physical Exam: head atraumatic neck supple lungs wheezing b/l improving heart S1S2 regular abdomen soft, NT, ND, BS present extremities no edema, no cyanosis neuro AAO x3 Results & Data Results & Data Vital Signs (Past 12 Hours) Vital Signs Temp Pulse Resp BP Pulse Ox O2 Del Method O2 Flow Rate 10/21/23 15:49 82 18 93 Room Air 10/21/23 15:20 37.1 C 73 18 147/80 H 94 Room Air 10/21/23 10:46 84 16 96 Room Air 10/21/23 08:20 Room Air 10/21/23 08:02 67 16 97 Nasal Cannula 2 10/21/23 07:22 36.7 C 83 16 135/79 99 Nasal Cannula 2 PG Care Time/CCT Total # of Minutes Spent Total Time Spent with Patient: Total time spent is greater than 50% in coordination of care (as documented) at patient's floor/unit and/or counseling patient: Coding Level of Care Code 94864 SUB INP/OBS CARE 2/35MIN Diagnoses Acute hypoxic respiratory failure J96.01 GERD (gastroesophageal reflux disease) K21.9 Anxiety with depression F41.8 CESILIA (obstructive sleep apnea) G47.33 DM2 (diabetes mellitus, type 2) E11.9 UTI (urinary tract infection) N39.0 Asthmatic bronchitis J45.909
[2023-10-22 07:02] LABS: Hemoglobin 12.1 g/dl (12.0-16.0); Mean Corpuscular Hemoglobin 31.2 pg (25.0-34.0); Mean Corpuscular Hgb Conc 32.7 g/dL (32.0-36.0); Mean Corpuscular Volume 95.4 fL (80.0-100.0); Mean Platelet Volume 10.8 fL (9.4-12.4); Nucleated RBC # (auto) 0.02 K/uL (0.00-0.12); Nucleated RBC % (auto) 0.2 %; Platelet Count 315 K/uL (130-400); RDW Coefficient of Variation 13.6 % (11.5-14.5); RDW Standard Deviation 47.8 fL (36.4-46.3); Red Blood Count 3.88 M/uL (4.20-5.40); White Blood Count 12.07 K/ul (4.8-10.8)
[2023-10-22 07:13] LABS: BUN Creatinine Ratio 27.7 (10-20); Calcium 9.6 mg/dl (8.6-10.3); Creatinine Clr Calc Pharmacy 59.4 ml/min; Est GFR (African American) 73.3 ml/min; Est GFR (Non-African American) 63.2 ml/min; Potassium 4.6 mmol/L (3.5-5.1)
[2023-10-22] MEDS: dexAMETHasone 6 MG in SYRINGE 0 ML IV SCH (09:29)
[2023-10-22] MEDS: cefTRIAXone SODIUM 1,000 MG in DEXTROSE 5 % MINI-B 50 ML IV SCH (10:00)
[2023-10-22] MEDS: predniSONE 20 MG TAB PO SCH (10:53)
[2023-10-22] MEDS: cephALEXin 250 MG CAP PO SCH (12:40)
--- NOTE | 2023-10-22 12:40 | Discharge Summary ---
Date of Service October 22, 2023 Admission HPI Per Admitting Provider Gemini Santos is a 67-year-old female with history of diabetes on metformin, CESILIA on CPAP, hyperlipidemia and GERD presenting with acute hypoxic respiratory failure secondary to URI. Patient was recently on vacation in [facility] from 10/02/2023 through 10/10/2023. She reports developing an illness on 10/04/2023 with nausea, vomiting and diarrhea. Her symptoms lasted several days then resolved. Over the last week she has had persistent dry cough as well as intermittent fever/chills and fatigue. She has had poor appetite and decreased oral intake as well. She denies chest pain or shortness of breath. No current nausea/vomiting or diarrhea. No additional complaints at this time. She has been taking Robitussin at home as well as her albuterol inhaler with minimal improvement. She was seen in a telehealth visit on and was prescribed Tessalon Perles which she has been taking with minimal relief. Patient with no underlying lung disease. She has had bronchitis in the past and has used albuterol but has never been diagnosed with asthma or COPD. She is compliant with her CPAP at night. In the ER patient afebrile, hemodynamically stable. Hypoxic on room air at 88% at rest which decreased to 85% with ambulation in the room. She has been placed on 4 L oxygen by nasal cannula with saturations in the low to mid 90s. Principal Diagnosis acute respiratory failure, asthmatic bronchitis Discharge Exam head atraumatic neck supple lungs wheezing b/l improving heart S1S2 regular abdomen soft, NT, ND, BS present extremities no edema, no cyanosis neuro AAO x3 Discharge Data Allergies Allergy/AdvReac Type Severity Reaction Status Date / Time No Known Drug Allergies Allergy Unknown . Verified 09/09/23 10:07 adhesive AdvReac Intermediate Blistering Verified 09/09/23 10:07 of the Skin Consultations 10/19/23 04:46 ED Decision to Admit Stat Ordered Studies 10/19/23 02:33 CT angio chest PE protocol Stat Hospital Course (1) Acute hypoxic respiratory failure: 67-year-old female presenting with 1 week of respiratory illness, acute hypoxic respiratory failure on arrival with saturation of 80% on room air at rest. She is presently on 4 L of supplemental oxygen by nasal cannula with adequate oxygenation. No respiratory distress or conversational dyspnea. She does have elevated white blood cell count = 12.4. Respiratory bio fire panel positive for human metapneumovirus as well as non-COVID coronavirus. CT findings as above with opacities of both lower lobes concerning for aspiration and/or multifocal pneumonia as well as filling defect of the bronchi of the left lower lobe repres enting possible mucous plug or aspiration. Also comment on new lymphadenopathy measuring 1.1 cm which could be infectious, inflammatory or neoplastic. asthmatic bronchitis continue IV steroids, nebs inhalers wean off oxygen as tolerated - repeat CT as an outpatient to monitor for resolution of lymphadenopathy respiratory failure resolved, she is feeling much better, no fever or chills, denies SOB (2) GERD (gastroesophageal reflux disease): chronic. Stable. Continue famotidine 40 mg p.o. every afternoon Continue Protonix 40 mg p.o. twice daily (3) Anxiety with depression: Chronic. Stable. Continue Wellbutrin 150 mg p.o. every morning Continue Prozac 30 mg p.o. daily Continue lorazepam 0.5 mg p.o. nightly (4) CESILIA (obstructive sleep apnea): Chronic. Stable. CPAP nightly (5) DM2 (diabetes mellitus, type 2): Chronic. Well-controlled. Last hemoglobin A1c = 6.6 on 07/26/2023 Will hold metformin Insulin sliding scale with goal blood sugar [id number] (6) UTI (urinary tract infection): urinalysis suggestive of UTI. uine culture Klebsiella pneumoniae transition to Keflex to complete the course of antibiotics (7) Asthmatic bronchitis: started iv steroids duonebs inhalers off oxygen transition to po steroids Total Time Total Time Spent Total Time Spent (In Minutes): 40 min Discharge Plan Discharge Items Patient Disposition: Home - Self-Care Reason For Visit: HYPOXIA,URI Discharge Diagnosis: pneumonia, asthmatic bronchitis Activity: Resume your previous activity Non-emergency contact: Primary Care Provider Call non-emergency contact if: your symptoms worsen Follow-up/Referrals: Tuyet Medina MD [Primary Care Provider] - 10/29/23 10:20 am Diet: Heart Healthy Addtl Attending Provider Instructions: see your PCP in 1 week Pending Studies at Discharge: No Stand-Alone Forms: My [employer], Smoking Cessation Medications and DC Order Prescriptions: New cephalexin 250 mg Capsule 250 mg PO QID Qty: 12 0RF prednisone 20 mg Tablet 40 mg PO DAILY Qty: 5 0RF albuterol sulfate [Proventil HFA] 90 mcg/actuation HFA aerosol inhaler 2 inh inhalation QID PRN (Reason: shortness of breath or wheezing) Qty: 6.7 0RF Continued albuterol sulfate 90 mcg/actuation HFA aerosol inhaler 1 - 2 puff inhalation Q4H PRN (Reason: shortness of breath or wheezing) Qty: 8.5 1RF fluoxetine 20 mg capsule 20 mg PO DAILY Qty: 90 1RF Rx Instructions: Take with 10 mg capsule bupropion HCl 150 mg tablet sustained-release 12 hr 150 mg PO QAM Qty: 90 1RF metformin 500 mg tablet extended release 24 hr 500 mg PO DAILY Qty: 30 11RF famotidine 40 mg tablet 40 mg PO PM Qty: 90 1RF fluoxetine 10 mg capsule 10 mg PO DAILY Qty: 90 1RF Rx Instructions: Take along with 20 mg capsule. lorazepam 0.5 mg tablet 0.5 mg PO HS PRN (Reason: anxiety) Qty: 30 0RF pantoprazole [Protonix] 40 mg tablet,delayed release (DR/EC) 40 mg PO BID Qty: 90 1RF psyllium husk [Daily Fiber] 0.4 gram capsule 0.4 g PO BID multivitamin Tablet 1 tab PO BID benzonatate 100 mg capsule See Rx Instructions PO TID PRN (Reason: cough) Qty: 30 1RF Rx Instructions: 1 to 2 capsules PO TID PRN; fluticasone propionate [Flonase Allergy Relief] 50 mcg/actuation spray,suspension 2 spray intranasal DAILY PRN (Reason: Allergy Symptoms) Rx Instructions: administer into each nostril [id number] mg/30 mL Solution 30 ml PO HS PRN (Reason: Cough) atorvastatin 10 mg tablet 10 mg PO QPM Discharge Orders: Discharge Order (Routine); Ordered 10/22/23 Ordered By: Jerilyn Alexander Admission Data Admit Date/Time: 10/19/23 05:41 Attending Provider: Jerilyn Alexander Admit Provider: Lucero Saleem Primary Care Provider: Tuyet Medina Other Providers: Lucero Saleem Other Interventions: Discharge Summary Assessment (RN) Last Done: 10/22/23 11:19 Coding Level of Care Code 50700 INP/OBS DISCH >30 MIN Diagnoses Acute hypoxic respiratory failure J96.01 GERD (gastroesophageal reflux disease) K21.9 Anxiety with depression F41.8 CESILIA (obstructive sleep apnea) G47.33 DM2 (diabetes mellitus, type 2) E11.9 UTI (urinary tract infection) N39.0 Asthmatic bronchitis J45.909
== END 2023-10-22 13:57 | disposition home or self-care (01) | DRG 193 ==
LOC: SUATTDRO → ED 00:15 → SUATTDRO 05:41 → EDINP 05:41 → 3N 08:42